=== PATIENT | male | born 1950 | race Caucasian/White ===

== ENCOUNTER → 2016-07-06 | Outpatient (CLI) | payer OTHER ==
[~2016-07-06] MED LIST: ESCI10TA53 PO; OMEP20CA5 PO; ZOLP-158 PO; [UNRECOGNIZED DRUG - CODE] PO
== END | disposition home or self-care (01) ==
LOC: LAB 08:24
DX: N52.9 Male erectile dysfunction, unspecified (principal)
CPT/HCPCS: 36415; 84403

== ENCOUNTER → 2016-10-12 | Outpatient (CLI) | payer OTHER ==
[~2016-10-12] MED LIST changes: -OMEP20CA5 PO; +OMEP20CA74 PO
[2016-10-12 08:37] LABS: Basophils # (auto) 0 uL; Basophils % (auto) 0.5 % (0.0-2.0); CONDITION Y; Eosinophils # (auto) 0.1 uL; Eosinophils % (auto) 0.8 % (0.0-7.0); Hematocrit 47.3 % (41.0-53.0); Lymphocytes # (auto) 2.1 uL; Lymphocytes % (auto) 32.8 % (10.0-50.0); Mean Corpuscular Hgb Conc. 33.9 g/dL (32.0-36.0); Mean Corpuscular Volume 88.7 fL (80.0-100.0); Mean Platelet Volume 9.1 fL (7.4-10.4); Monocytes # (auto) 0.5 uL; Monocytes % (auto) 8.4 % (0.0-12.0); Neutrophils # (auto) 3.7 uL; Neutrophils % (auto) 57.5 % (37.0-80.0); Platelet Count (auto) 212 10^3/uL (140-450); Red Cell Distribution Width 15.9 % (11.6-16.0); White Blood Cell 6.4 10^3/uL (4.4-10.8)
[2016-10-12 08:40] LABS: Urine Bilirubin Negative (Negative); Urine Blood Negative /uL (Negative); Urine Color Yellow (Yellow); Urine Glucose Normal (Normal); Urine Ketone Negative (Negative); Urine Nitrite Negative (Negative); Urine RBC <1 /hpf (0 - 3); Urine Urobilinogen Normal (Negative)
[2016-10-12 09:09] LABS: Albumin 3.5 g/dL (3.4-5.0); BUN/Creatinine Ratio 13.5; Bilirubin, Total 0.7 mg/dL (0.2-1.0); Calcium 8.3 mg/dL (8.5-10.1); Potassium 4.1 mmol/L (3.5-5.1); Total Protein 7.3 g/dL (6.4-8.2); Uric Acid 7.3 mg/dL (3.5-7.2)
== END | disposition home or self-care (01) ==
LOC: LAB 07:50
PROVIDERS: ATTEND Family Medicine
DX: E79.0 Hyperuricemia without signs of inflammatory arthritis and tophaceous disease (principal); E78.5 Hyperlipidemia, unspecified; Z12.5 Encounter for screening for malignant neoplasm of prostate; Z12.11 Encounter for screening for malignant neoplasm of colon
CPT/HCPCS: 36415; 80053; 80061; 81001; 82270; 83036; 84153; 84443; 84550; 85025

== ENCOUNTER → 2017-05-21 | Outpatient (CLI) | payer OTHER ==
[2017-05-21 09:25] LABS: Basophils # (auto) 0 uL; Basophils % (auto) 0.6 % (0.0-2.0); Eosinophils # (auto) 0.1 uL; Eosinophils % (auto) 1.6 % (0.0-7.0); Hematocrit 49.9 % (41.0-53.0); Hemoglobin 16.8 g/dL (13.5-17.5); Lymphocytes # (auto) 2.4 uL; Lymphocytes % (auto) 36.9 % (10.0-50.0); Mean Corpuscular Hemoglobin 30.6 pg (28.0-32.0); Mean Corpuscular Hgb Conc. 33.7 g/dL (32.0-36.0); Mean Corpuscular Volume 90.7 fL (80.0-100.0); Monocytes # (auto) 0.5 uL; Monocytes % (auto) 7.4 % (0.0-12.0); Neutrophils # (auto) 3.5 uL; Neutrophils % (auto) 53.5 % (37.0-80.0); Nucleated Red Blood Cells % 0.1 %; Platelet Count (auto) 153 10^3/uL (140-450); Red Cell Distribution Width 14.6 % (11.8-14.3); White Blood Cell 6.5 10^3/uL (4.4-10.8)
[2017-05-21 09:33] LABS: Urine Bacteria NONE SEEN /hpf (None Seen); Urine Blood Negative /uL (Negative); Urine Specific Gravity 1.019 (1.001-1.035); Urine WBC <1 /hpf (0 - 3)
[2017-05-21 10:09] LABS: Albumin 3.7 g/dL (3.4-5.0); BUN/Creatinine Ratio 24.4; Bilirubin, Total 0.8 mg/dL (0.2-1.0); Calcium 8.5 mg/dL (8.5-10.1); Total Protein 7.5 g/dL (6.4-8.2)
== END | disposition home or self-care (01) ==
LOC: LAB 09:03
PROVIDERS: ATTEND Nurse Practitioner
DX: E78.5 Hyperlipidemia, unspecified (principal); R79.89 Other specified abnormal findings of blood chemistry
CPT/HCPCS: 36415; 80053; 80061; 81001; 83036; 84153; 84403; 84443; 85025

== ENCOUNTER → 2017-10-28 | Outpatient (CLI) | payer OTHER ==
[2017-10-28 08:33] LABS: Basophils # (auto) 0 uL; Basophils % (auto) 0.7 % (0.0-2.0); Eosinophils # (auto) 0.1 uL; Eosinophils % (auto) 1.3 % (0.0-7.0); Hematocrit 48.4 % (41.0-53.0); Hemoglobin 16.6 g/dL (13.5-17.5); Lymphocytes % (auto) 30.8 % (10.0-50.0); Mean Corpuscular Hemoglobin 30.9 pg (28.0-32.0); Mean Corpuscular Hgb Conc. 34.2 g/dL (32.0-36.0); Mean Corpuscular Volume 90.4 fL (80.0-100.0); Monocytes # (auto) 0.5 uL; Monocytes % (auto) 8.6 % (0.0-12.0); Neutrophils # (auto) 3.8 uL; Neutrophils % (auto) 58.6 % (37.0-80.0); Nucleated Red Blood Cells % 0.1 %; Platelet Count (auto) 181 10^3/uL (140-450); Red Blood Cells 5.35 10^6/uL (4.5-5.90); Red Cell Distribution Width 14.3 % (11.8-14.3); White Blood Cell 6.4 10^3/uL (4.4-10.8)
[2017-10-28 09:35] LABS: Albumin 3.3 g/dL (3.4-5.0); BUN/Creatinine Ratio 15.6; Calcium 8.2 mg/dL (8.5-10.1); Potassium 4.1 mmol/L (3.5-5.1)
[2017-10-28 09:38] LABS: Bilirubin, Total 0.8 mg/dL (0.2-1.0); Total Protein 7.2 g/dL (6.4-8.2)
== END | disposition home or self-care (01) ==
LOC: LAB 08:12
PROVIDERS: ATTEND Nurse Practitioner
DX: E78.5 Hyperlipidemia, unspecified (principal)
CPT/HCPCS: 36415; 80053; 80061; 83036; 84403; 85025

== ENCOUNTER → 2018-02-16 | Day surgery (SDC) | payer OTHER ==
[2018-02-15 12:21] LABS: Urine WBC None Seen /hpf (0 - 3)
[2018-02-15 12:31] LABS: Basophils # (auto) 0 uL; Basophils % (auto) 0.4 % (0.0-2.0); Eosinophils # (auto) 0.1 uL; Eosinophils % (auto) 1.4 % (0.0-7.0); Hematocrit 49.2 % (41.0-53.0); Hemoglobin 16.6 g/dL (13.5-17.5); Lymphocytes # (auto) 2.5 uL; Lymphocytes % (auto) 36.5 % (10.0-50.0); Mean Corpuscular Hemoglobin 30.7 pg (28.0-32.0); Mean Corpuscular Hgb Conc. 33.7 g/dL (32.0-36.0); Monocytes # (auto) 0.6 uL; Monocytes % (auto) 8.7 % (0.0-12.0); Neutrophils # (auto) 3.6 uL; Platelet Count (auto) 159 10^3/uL (140-450); Red Cell Distribution Width 14.6 % (11.8-14.3); White Blood Cell 6.8 10^3/uL (4.4-10.8)
[2018-02-15 12:37] LABS: Urine Bacteria NONE SEEN /hpf (None Seen); Urine Blood Negative /uL (Negative); Urine Specific Gravity 1.018 (1.001-1.035)
[2018-02-15 12:45] LABS: Partial Thromboplastin Time 29.4 sec (23.78-33.04); Prothrombin Time 10.7 sec (9.27-12.13)
[2018-02-15 12:49] LABS: Albumin 3.3 g/dL (3.4-5.0); BUN/Creatinine Ratio 19.4; Calcium 8.2 mg/dL (8.5-10.1); Potassium 4.1 mmol/L (3.5-5.1)
[2018-02-15 13:07] LABS: Bilirubin, Total 0.4 mg/dL (0.2-1.0); Total Protein 7.2 g/dL (6.4-8.2)
[~2018-02-16] VITALS: Ht 180.3 cm; Wt 98.9 kg
[~2018-02-16] MED LIST changes: -ESCI10TA53 PO; +GLYCOPYRROLATE 0.2 MG/ML 1ML VIAL ONE; +HYDROmorphone HCL 2 MG/ML VL IV PRN; +KETOROLAC TROMETH 30 MG/ML 1ML VIAL ONE; +LEVOFLOXACIN 500MG 100 ML IV ONE; +LIDOCAINE 1% INJ PF 5ML AMP ONE; +METOCLOPRAMIDE HCL 5MG/ml INJ 2ml VIAL ONE; +MIDAZOLAM HCL 1MG/1ML-2 ML VIAL ONE; +NALOXONE HCL 0.4 MG/ML VIAL IV PRN; +NEOSTIGMINE 1 MG/ML INJ (10mg/10ML VIAL) ONE; +ONDANSETRON HCL 4 MG/2 ML VIAL IV ONE; +ROCURONIUM 10MG/ML 10ML VIAL IV ONE; +SUCCINYLCHOLINE CHLORIDE 20 MG/ML 10ML VIAL IV ONE; -ZOLP-158 PO; -[UNRECOGNIZED DRUG - CODE] PO; +fentaNYL CITRATE 100 MCG/2 ML VL ONE
[2018-02-16 13:15] VITALS: BP 138/80
== END | disposition home or self-care (01) ==
LOC: SUR 08:01
PROVIDERS: ATTEND Surgery
DX: K62.0 Anal polyp (principal); K62.89 Other specified diseases of anus and rectum; M19.90 Unspecified osteoarthritis, unspecified site; G47.33 Obstructive sleep apnea (adult) (pediatric); I10 Essential (primary) hypertension; K21.9 Gastro-esophageal reflux disease without esophagitis; Z98.890 Other specified postprocedural states; Z79.899 Other long term (current) drug therapy
CPT/HCPCS: 36415; 46922; 80053; 81001; 85025; 85610; 85730; 88304; J0330; J1885; J1956; J2250; J2405; J2765; J3010

== ENCOUNTER → 2018-05-18 | Outpatient (CLI) | payer OTHER ==
[~2018-05-18] MED LIST changes: -GLYCOPYRROLATE 0.2 MG/ML 1ML VIAL ONE; -HYDROmorphone HCL 2 MG/ML VL IV PRN; -KETOROLAC TROMETH 30 MG/ML 1ML VIAL ONE; -LEVOFLOXACIN 500MG 100 ML IV ONE; -LIDOCAINE 1% INJ PF 5ML AMP ONE; -METOCLOPRAMIDE HCL 5MG/ml INJ 2ml VIAL ONE; -MIDAZOLAM HCL 1MG/1ML-2 ML VIAL ONE; -NALOXONE HCL 0.4 MG/ML VIAL IV PRN; -NEOSTIGMINE 1 MG/ML INJ (10mg/10ML VIAL) ONE; -ONDANSETRON HCL 4 MG/2 ML VIAL IV ONE; -ROCURONIUM 10MG/ML 10ML VIAL IV ONE; -SUCCINYLCHOLINE CHLORIDE 20 MG/ML 10ML VIAL IV ONE; -fentaNYL CITRATE 100 MCG/2 ML VL ONE
[2018-05-18 08:16] LABS: Basophils # (auto) 0.1 uL; Eosinophils # (auto) 0.1 uL; Eosinophils % (auto) 2.6 % (0.0-7.0); Hematocrit 47.4 % (41.0-53.0); Hemoglobin 16.3 g/dL (13.5-17.5); Lymphocytes % (auto) 35.9 % (10.0-50.0); Mean Corpuscular Hgb Conc. 34.3 g/dL (32.0-36.0); Mean Corpuscular Volume 90.4 fL (80.0-100.0); Monocytes # (auto) 0.5 uL; Monocytes % (auto) 8.7 % (0.0-12.0); Neutrophils # (auto) 2.9 uL; Neutrophils % (auto) 51.8 % (37.0-80.0); Nucleated Red Blood Cells % 0.1 %; Platelet Count (auto) 148 10^3/uL (140-450); Red Blood Cells 5.24 10^6/uL (4.5-5.90); Red Cell Distribution Width 14.2 % (11.8-14.3); White Blood Cell 5.7 10^3/uL (4.4-10.8)
[2018-05-18 09:28] LABS: Albumin 3.4 g/dL (3.4-5.0); BUN/Creatinine Ratio 13.7; Calcium 8.7 mg/dL (8.5-10.1); Potassium 4.3 mmol/L (3.5-5.1)
[2018-05-18 09:32] LABS: Bilirubin, Total 0.8 mg/dL (0.2-1.0); Total Protein 7.3 g/dL (6.4-8.2)
[2018-05-18 09:53] LABS: Free T4 (Free Thyroxine) 0.85 ng/dL (0.89-1.76)
[2018-05-18 09:54] LABS: Folate (Folic Acid) 12.4 ng/mL (5.38-24)
== END | disposition home or self-care (01) ==
LOC: LAB 08:02
PROVIDERS: ATTEND Internal Medicine
DX: E78.5 Hyperlipidemia, unspecified (principal)
CPT/HCPCS: 36415; 80053; 80061; 82607; 82746; 83036; 84403; 84439; 84443; 85025

== ENCOUNTER 2024-07-19 13:46 | Emergency (ER) | payer OTHER ==
[~2024-07-19] VITALS: Ht 180.3 cm; Wt 94.9 kg
[2024-07-19 14:16] VITALS: BP 144/75; PULSE 77; RESP 16; TEMP 98.7; O2SAT 96
--- NOTE | 2024-07-19 14:16 | ED.PDOC ---
GI ASSESSMENT HPI Comments 73 y/o M, with PMHx of gallstones presents to the ED for CC of abdominal pain. Patient states, he has been experiencing epigastric abdominal pain onset, last night (07/18/24). Patient reports, that he had an EGD procedure done yesterday morning (07/18/24) for prior Dx:Chololithiasis q2xbwan ago. Patient endorses, taking [id number] for pain with no relief of symptoms. Patient denies melena, blood streaked bowels, hematemesis, nausea, or vomiting. No other symptoms or modifying factors present at this time. Time Seen by MD: 14:00 Reviewed Notes: Nurses Notes, Medications, Allergies Allergies: Coded Allergies: NO KNOWN ALLERGIES (Unverified , 02/15/18) Home Meds Reported Medications Omeprazole (PRILOSEC) 20 Mg Cap, 1 CAP PO DAILY, #90 CAP 1 Refill 02/05/15 Information Source: Patient Mode of Arrival: Ambulatory Timing: Hours Duration: Since onset Prehospital treatment: None Quality: None Vomitus: None Stool: Normal Severity: Moderate Recent: None Recent Hx of: None Pain Location: Epigastric Modifying Factors: Nothing Associated sign and symptoms: Abdominal Pain Past Medical History PAST MEDICAL HISTORY: Denies Surgical History: Denies all surgeries Family History Family History: Unknown Social History Smoker: Non-Smoker Alcohol: Denies ETOH Use Drugs: Denies Drug Use Lives In: Home Constitutional: denies: chills, diaphoresis, fatigue, fever, malaise, sweats, weakness, others EENTM: denies: blurred vision, double vision, ear bleeding, ear discharge, ear drainage, ear pain, ear ringing, eye pain, eye redness, hearing loss, mouth pain, mouth swelling, nasal discharge, nose bleeding, nose congestion, nose pa in, photophobia, tearing, throat pain, throat swelling, voice changes, others Respiratory: denies: cough, hemoptysis, orthopnea, SOB at rest, shortness of breath, SOB with excertion, stridor, wheezing, others Cardiovascular: denies: chest pain, dizzy spells, diaphoresis, Dyspnea on exertion, edema, irregular heart beat, left arm pain, lightheadedness, palpitations, PND, syncope, others Gastrointestinal: reports: abdominal pain; denies: abdomen distended, blood streaked bowels, constipated, diarrhea, dysphagia, difficulty swallowing, hematemesis, melena, nausea, poor appetite, poor fluid intake, rectal bleeding, rectal pain, vomiting, others Genitourinary: denies: burning, dysuria, flank pain, frequency, hematuria, incontinence, penile discharge, penile sore, pain, testicle pain, testicle swelling, urgency, others Neurological: denies: dizziness, fainting, headache, left sided numbness, left sided weakness, numbness, paresthesia, pre-existing deficit, right sided numbness, right sided weakness, seizure, speech problems, tingling, tremors, weakness, others Musculoskeletal: reports: back pain; denies: gout, joint pain, joint swelling, muscle pain, muscle stiffness, neck pain, others Integumetry: denies: bruises, change in color, change in hair/nails, dryness, laceration, lesions, lumps, rash, wounds, others Allergic/Immunocompromised: denies: Difficulty Healing, Frequent Infections, Hives, Itching, others Hematologic/Lymphatic: denies: anemia, blood clots, easy bleeding, easy bruising, swollen glands, others Endocrine: denies: excessive hunger, excessive sweating, excessive thirst, excessive urination, flushing, intolerance to cold, intolerance to heat, unexplained weight gain, unexplained weight loss, others Psychiatric: denies: anxiety, bipolar disorder, depression, hopeless, panic disorder, schizophrenia, sleepless, suicidal, others All Other Systems: Reviewed and Negative Physical Exam General Appearance: Moderate Distress HEENT: Normal ENT Inspection, Pharynx Normal, TMs Normal Neck: Full Range of Motion, Non-Tender, Normal, Normal Inspection Respiratory: Chest Non-Tender, Lungs Clear, No Accessory Muscle Use, No R espiratory Distress, Normal Breath Sounds Cardiovascular: No Edema, No JVD, No Murmur, No Gallop, Normal Peripheral Pulses, Regular Rate/Rhythm Breast Exam: Deferred Gastrointestinal: Epigastric, No Organomegaly, No Pulsatile Mass, Normal Bowel Sounds, Soft, Tenderness Genitalia: Deferred Pelvic: Deferred Rectal: Deferred Extremities: No calf tenderness, Normal capillary refill, Normal inspection, Normal range of motion, Non-tender, No pedal edema Musculoskeletal : Apperance: Normal Neurologic: Alert, smoking pipe liner II-XII nml as Tested, No Motor Deficits, Normal Affect, Normal Mood, No Sensory Deficits Cerebellar Function: Normal Reflexes: Normal Skin: Dry, Normal Color, Warm Lymphatic: No Adenopathy Was a procedure done? Was a procedure done?: No GI differential Dx Differential Diagnosis: Cholangitis, Cholecystitis, Gastritis/PUD, Gastroenteritis X-Ray, Labs, Meds, VS Vital Signs Date Time Temp Pulse Resp B/P (MAP) Pulse Ox O2 Delivery O2 Flow Rate FiO2 07/19/24 14:16 98.7 77 16 144/75 (98) 96 98.7 Lab Test 07/19/24 14:36 07/19/24 12:30 Range/Units White Blood Count 8.7 4.4-10.8 10^3/uL Red Blood Count 5.25 4.5-5.90 10^6/uL Hemoglobin 16.5 13.5-17.5 g/dL Hematocrit 47.6 41.0-53.0 % Mean Corpuscular Volume 90.5 80.0-100.0 fL Mean Corpuscular Hemoglobin 31.4 28.0-32.0 pg Mean Corpuscular Hemoglobin Concent 34.7 32.0-36.0 g/dL Red Cell Distribution Width 14.9 H 11.8-14.3 % Platelet Count 172 140-450 10^3/uL Mean Platelet Volume 8.1 6.9-10.8 fL Neutrophils (%) (Auto) 74.9 37.0-80.0 % Lymphocytes (%) (Auto) 19.6 10.0-50.0 % Monocytes (%) (Auto) 5.1 0.0-12.0 % Eosinophils (%) (Auto) 0.0 0.0-7.0 % Basophils (%) (Auto) 0.4 0.0-2.0 % Neutrophils # (Auto) 6.5 1.6-8.6 10 ^3/uL Lymphocytes # (Auto) 1.7 0.4-5.4 10 ^3/uL Monocytes # (Auto) 0.4 0-1.3 10 ^3/uL Eosinophils # (Auto) 0 0-0.8 10 ^3/uL Basophils # (Auto) 0 0-0.2 10 ^3/uL Nucleated Red Blood Cells 0.3 % Sodium Level 141 136-145 mmol/L Potassium Level 4.1 3.5-5.1 mmol/L Chloride Level 104 98-107 mmol/L Carbon Dioxide Level 30 20-31 mmol/L Anion Gap 7 5-15 Blood Urea Nitrogen 13 9-23 mg/dL Creatinine 0.90 0.700-1.30 mg/dL Glomerular Filtration Rate Calc 90 >90 mL/min BUN/Creatinine Ratio 14.4 10.0-20.0 Serum Glucose 96 74-106 mg/dL Calcium Level 8.8 8.7-10.4 mg/dL Total Bilirubin 1.5 H 0.2-1.0 mg/dL Aspartate Amino Transferase (AST) 89 H 13-40 U/L Alanine Aminotransferase (ALT) 56 H 7-40 U/L Alkaline Phosphatase 100 46-116 U/L Total Protein 6.6 5.7-8.2 g/dL Albumin 4.1 3.2-4.8 g/dL Lipase 51 12-53 U/L Urine Color Light-yellow Yellow Urine Clarity Clear Clear Urine pH 7.5 5.0-9.0 Urine Specific [place] 1.009 1.001-1.035 Urine Protein Negative Negative Urine Ketones Negative Negative Urine Blood Negative Negative /uL Urine Nitrite Negative Negative Urine Bilirubin Negative Negative Urine Urobilinogen Normal Negative mg/dL Urine Leukocyte Esterase Negative Negative /uL Urine RBC 1 0 - 3 /hpf Urine Microscopic WBC < 1 0-3 /HPF Urine Squamous Epithelial Cells None seen <5 /hpf Urine Bacteria None seen None Seen /hpf Urine Glucose Normal Normal mg/dL GALLBLADDER US: IMPRESSION: 1. Sludge and stones in the gallbladder with no gallbladder wall thickening. Mildly dilated common bile duct. Negative sonographic Rothman's sign 2. 8.5 by 6.2 cm hepatic cyst At this time an IV Hep-Lock has been established The patient was given morphine 4 mg IV push for the pain The patient was given Zofran IV push for the nausea The patient is being given Protonix 40 mg IV push The patient's CBC is within normal limits The chemistry panel is within normal limits The patient is being admitted to the hospitalist At this time, the patient understands and agrees with the management. Images Reviewed?: Images reviewed and evaluated by me Time of 1ST Reevaluation: 14:30 Reevaluation 1ST: Unchanged Patient Education/Counseling: Diagnosis, Treatment, Prognosis Family Education/Counseling: No Family Present Departure 1 Departure Time of Disposition: 15:40 Impression: Primary Impression: Intractable abdominal pain Additional Impression: Cholelithiasis Qualified Codes: K80.20 - Calculus of gallbladder without cholecystitis without obstruction Disposition: 09 ADMITTED INPATIENT Admit to: Med Surg Condition: Fair Critical Care Note Critical Care Time?: No Stability Stability form required: Yes Unstable for transfer: ED Physician Assesment (Clinical assesment) Heart Score Heart Score: Heart Score Response (Comments) Value History N/A 0 EKG N/A 0 Age N/A 0 Risk Factors N/A 0 Troponin N/A 0 Total 0 I personally scribed for KENAN CARLOS MD ([email or web address]) on 07/19/24 at 14:16. Electronically submitted by Maryellen Rosales ([email or web address]). I personally scribed for KENAN CARLOS MD ([email or web address]) on 07/19/24 at 15:16. Electronically submitted by Maryellen Rosales ([email or web address]). I personally scribed for KENAN CARLOS MD ([email or web address]) on 07/19/24 at 15:31. Electronically submitted by Maryellen Rosales ([email or web address]). KENAN CARLOS MD July 19, 2024 14:16
[2024-07-19 14:44] LABS: Urine Bacteria None Seen /hpf (None Seen)
[2024-07-19 14:44] LABS: Basophils # (auto) 0 10 ^3/uL (0-0.2); Basophils % (auto) 0.4 % (0.0-2.0); Eosinophils # (auto) 0 10 ^3/uL (0-0.8); Hematocrit 47.6 % (41.0-53.0); Hemoglobin 16.5 g/dL (13.5-17.5); Lymphocytes # (auto) 1.7 10 ^3/uL (0.4-5.4); Lymphocytes % (auto) 19.6 % (10.0-50.0); Mean Corpuscular Hemoglobin 31.4 pg (28.0-32.0); Mean Corpuscular Hgb Conc. 34.7 g/dL (32.0-36.0); Mean Corpuscular Volume 90.5 fL (80.0-100.0); Monocytes # (auto) 0.4 10 ^3/uL (0-1.3); Monocytes % (auto) 5.1 % (0.0-12.0); Neutrophils # (auto) 6.5 10 ^3/uL (1.6-8.6); Neutrophils % (auto) 74.9 % (37.0-80.0); Nucleated Red Blood Cells % 0.3 %; Platelet Count (auto) 172 10^3/uL (140-450); Red Blood Cells 5.25 10^6/uL (4.5-5.90); Red Cell Distribution Width 14.9 % (11.8-14.3); White Blood Cell 8.7 10^3/uL (4.4-10.8)
[2024-07-19 14:56] LABS: Urine Blood Negative /uL (Negative); Urine Clarity Clear (Clear); Urine Color Light-Yellow (Yellow); Urine Protein, UAD Negative (Negative); Urine Specific Gravity 1.009 (1.001-1.035); Urine Squamous Epithelial Cell None Seen /hpf (<5); Urine Urobilinogen Normal (Negative); Urine WBC < 1 /HPF (0-3); Urine pH 7.5 (5.0-9.0)
[2024-07-19 15:08] LABS: Albumin 4.1 g/dL (3.2-4.8); Alkaline Phosphatase 100 U/L (46-116); Anion Gap 7 (5-15); BUN/Creatinine Ratio 14.4 (10.0-20.0); Blood Urea Nitrogen 13 mg/dL (9-23); Calcium 8.8 mg/dL (8.7-10.4); Carbon Dioxide 30 mmol/L (20-31); Chloride 104 mmol/L (98-107); Glucose 96 mg/dL (74-106); Lipase 51 U/L (12-53); Potassium 4.1 mmol/L (3.5-5.1); Sodium 141 mmol/L (136-145); Total Protein 6.6 g/dL (5.7-8.2)
[2024-07-19 15:09] LABS: Alanine Aminotransferase 56 U/L (7-40); Aspartate Aminotransferase 89 U/L (13-40); Bilirubin, Total 1.5 mg/dL (0.2-1.0)
--- NOTE | 2024-07-19 15:10 | DVH ---
INDICATION: pain TECHNIQUE: Ultrasound gallbladder . Multiple real-time sonographic images of the abdomen were obtai isela. COMPARISON: None FINDINGS: The liver is homogenous in echogenicity. The liver measures 16.12 cm. No intrahepatic bili kang ductal dilatation is noted. 8.5 x 6.2 x 5.3 cm anechoic lesion right lobe of the liver suggesting hepatic cyst. The gallbladder wall measures 0.23 cm and is unremarkable. Stones sludge are noted in the gallbladd er. The common duct measures 0.76 cm and is dilated. No pericholecystic fluid is noted. Negative so nographic Rothman's sign The right kidney measures 10.3 cm. No hydronephrosis. The pancreas is not well visualized due to obscuration from bowel gas. The visualized portions of the IVC and aorta are grossly unremarkable. IMPRESSION: 1. Sludge and stones in the gallbladder with no gallbladder wall thickening. Mildly dilated common bi le duct. Negative sonographic Rothman's sign 2. 8.5 by 6.2 cm hepatic cyst
[2024-07-19] MEDS ORDERED: ONDANSETRON HCL 4 MG/2 ML VIAL IV ONE (15:15)
[2024-07-19] MEDS ORDERED: MORPHINE SULFATE 4 MG/ML SYR/VIAL IV ONE (15:15)
[2024-07-19] MEDS ORDERED: PANTOPRAZOLE 40 MG/10 ML VIAL INJ IV ONE (15:15)
[2024-07-19] MEDS ORDERED: PANT40TA2 PO (16:28)
== END 2024-07-19 20:37 | disposition home or self-care (01) ==
LOC: ER 13:48
DX: R10.13 Epigastric pain (principal); K80.20 Calculus of gallbladder without cholecystitis without obstruction; Z79.899 Other long term (current) drug therapy
CPT/HCPCS: 36415; 76705; 80053; 81001; 83690; 85025

== ENCOUNTER 2025-03-03 23:42 | Inpatient (IN) | payer OTHER ==
[~2025-03-03] VITALS: Ht 180.3 cm; Wt 96.1 kg
[~2025-03-03 23:42] MED LIST changes: +PANT40TA2 PO
[2025-03-04] MEDS: HYDROmorphone HCL 2 MG/ML VL/or syr IV ONE (00:30)
--- NOTE | 2025-03-04 00:41 | ED.PDOC ---
GI ASSESSMENT HPI Comments 74-year-old male who came to ER for abdominal pain. Recently diagnosed with gallstones, in the past few days patient has been experiencing epigastric/right upper quadrant abdominal pain, associated bouts of nausea and vomiting. Chief Complaint: Abdominal Pain Time Seen by MD: 00:40 Primary Care Provider: RODGER Chau Notes: Nurses Notes Allergies: Coded Allergies: NO KNOWN ALLERGIES (Unverified , 02/15/18) Home Meds Active Scripts Pantoprazole Sodium Sesquihydr (Protonix) 40 Mg Tab, 40 MG PO DAILY, #30 TAB Prov:KENAN CARLOS MD 07/19/24 Reported Medications Omeprazole (PRILOSEC) 20 Mg Cap, 1 CAP PO DAILY, #90 CAP 1 Refill 02/05/15 Information Source: Patient Mode of Arrival: Ambulatory Past Medical History PAST MEDICAL HISTORY: Gallstones Surgical History: Denies all surgeries Family History Family History: Unknown Social History Smoker: Non-Smoker Alcohol: Denies ETOH Use Drugs: Denies Drug Use Lives In: Home Constitutional: denies: chills, diaphoresis, fatigue, fever, malaise, sweats, weakness, others EENTM: denies: blurred vision, double vision, ear bleeding, ear discharge, ear drainage, ear pain, ear ringing, eye pain, eye redness, hearing loss, mouth pain, mouth swelling, nasal discharge, nose bleeding, nose congestion, nose pain, photophobia, tearing, throat pain, throat swelling, voice changes, others Respiratory: denies: cough, hemoptysis, orthopnea, SOB at rest, shortness of breath, SOB with excertion, stridor, wheezing, others Cardiovascular: denies: chest pain, dizzy spells, diaphoresis, Dyspnea on exertion, edema, irregular heart beat, left arm pain, lightheadedness, palpitations, PND, syncope, others Gastrointestinal: reports: abdominal pain, nausea, vomiting; denies: abdomen distended, blood streaked bowels, constipated, diarrhea, dysphagia, difficulty swallowing, hematemesis, melena, poor appetite, poor fluid intake, rectal bleeding, rectal pain, others Genitourinary: denies: burning, dysuria, flank pain, frequency, hematuria, incontinence, penile discharge, penile sore, pain, testicle pain, testicle swelling, urgency, others Neurological: denies: dizziness, fainting, headache, left sided numbness, left sided weakness, numbness, paresthesia, pre-existing deficit, right sided numbness, right sided weakness, seizure, speech problems, tingling, tremors, weakness, others Musculoskeletal: denies: back pain, gout, joint pain, joint swelling, muscle pain, muscle stiffness, neck pain, others Integumetry: denies: bruises, change in color, change in hair/nails, dryness, laceration, lesions, lumps, rash, wounds, others Allergic/Immunocompromised: denies: Difficulty Healing, Frequent Infections, Hives, Itching, others Hematologic/Lymphatic: denies: anemia, blood clots, easy bleeding, easy bruising, swollen glands, others Endocrine: denies: excessive hunger, excessive sweating, excessive thirst, excessive urination, flushing, intolerance to cold, intolerance to heat, u nexplained weight gain, unexplained weight loss, others Psychiatric: denies: anxiety, bipolar disorder, depression, hopeless, panic disorder, schizophrenia, sleepless, suicidal, others Physical Exam General Appearance: No Apparent Distress, Normal HEENT: Normal ENT Inspection, Pharynx Normal, TMs Normal Neck: Full Range of Motion, Non-Tender, Normal, Normal Inspection Respiratory: Chest Non-Tender, Lungs Clear, No Accessory Muscle Use, No Respiratory Distress, Normal Breath Sounds Cardiovascular: No Edema, No JVD, No Murmur, No Gallop, Normal Peripheral Pulses, Regular Rate/Rhythm Breast Exam: Deferred Gastrointestinal: No Organomegaly, Non Tender, No Pulsatile Mass, Normal Bowel Sounds, Soft Genitalia: Deferred Pelvic: Deferred Rectal: Deferred Extremities: No calf tenderness, Normal capillary refill, Normal inspection, Normal range of motion, Non-tender, No pedal edema Musculoskeletal : Apperance: Normal Neurologic: Alert, geosciences faculty member II-XII nml as Tested, No Motor Deficits, Normal Affect, Normal Mood, No Sensory Deficits Cerebellar Function: Normal Reflexes: Normal Skin: Dry, Normal Color, Warm Lymphatic: No Adenopathy Was a procedure done? Was a procedure done?: No GI differential Dx Differential Diagnosis: Cholangitis, Cholecystitis, Diverticular disease, Gastritis/PUD, Gastroenteritis, Pancreatitis X-Ray, Labs, Meds, VS Vital Signs Date Time Temp Pulse Resp B/P (MAP) Pulse Ox O2 Delivery O2 Flow Rate FiO2 03/04/25 02:57 98.1 58 20 143/79 (100) 96 98.1 03/04/25 02:57 60 20 97 Room Air 03/03/25 23:46 97.6 60 16 151/98 100 97.6 Lab Test 03/04/25 00:30 Range/Units White Blood Count 7.7 4.4-10.8 10^3/uL Red Blood Count 4.96 4.5-5.90 10^6/uL Hemoglobin 15.4 13.5-17.5 g/dL Hematocrit 44.6 41.0-53.0 % Mean Corpuscular Volume 89.9 80.0-100.0 fL Mean Corpuscular Hemoglobin 31.0 28.0-32.0 pg Mean Corpuscular Hemoglobin Concent 34.6 32.0-36.0 g/dL Red Cell Distribution Width 15.3 H 11.8-14.3 % Platelet Count 132 L 140-450 10^3/uL Mean Platelet Volume 8.6 6.9-10.8 fL Neutrophils (%) (Auto) 70.3 37.0-80.0 % Lymphocytes (%) (Auto) 22.9 10.0-50.0 % Monocytes (%) (Auto) 6.4 0.0-12.0 % Eosinophils (%) (Auto) 0.0 0.0-7.0 % Basophils (%) (Auto) 0.4 0.0-2.0 % Neutrophils # (Auto) 5.4 1.6-8.6 10 ^3/uL Lymphocytes # (Auto) 1.8 0.4-5.4 10 ^3/uL Monocytes # (Auto) 0.5 0-1.3 10 ^3/uL Eosinophils # (Auto) 0 0-0.8 10 ^3/uL Basophils # (Auto) 0 0-0.2 10 ^3/uL Nucleated Red Blood Cells 0.1 % Prothrombin Time 10.8 9.3-11.8 sec Prothrombin Time INR 1.02 0.9-1.15 Activated Partial Thromboplast Time 27.6 24.5-34.5 SEC Sodium Level 138 136-145 mmol/L Potassium Level 4.7 3.5-5.1 mmol/L Chloride Level 104 98-107 mmol/L Carbon Dioxide Level 27 20-31 mmol/L Anion Gap 7 5-15 Blood Urea Nitrogen 11 9-23 mg/dL Creatinine 0.85 0.700-1.30 mg/dL Glomerular Filtration Rate Calc 91 >90 mL/min BUN/Creatinine Ratio 12.9 10.0-20.0 Serum Glucose 123 H 74-106 mg/dL Calcium Level 9.1 8.7-10.4 mg/dL Total Bilirubin 2.7 H 0.2-1.0 mg/dL Aspartate Amino Transferase (AST) 610 H 13-40 U/L Alanine Aminotransferase (ALT) 504 H 7-40 U/L Alkaline Phosphatase 130 H 46-116 U/L Total Protein 6.9 5.7-8.2 g/dL Albumin 4.0 3.2-4.8 g/dL Lipase 50 12-53 U/L Time of 1ST Reevaluation: 00:38 Reevaluation 1ST: Unchanged Patient Education/Counseling: Diagnosis, Treatment Family Education/Counseling: No Family Present SEPSIS Sepsis Screen Date sepsis recognized/suspect: Mar 03, 2025 Time Sepsis recognized/suspect: 2347 Recent Procedure: No On Antibiotic Therapy: No Respiratory Rate >20: No Heart Rate >90: No Temp<36 C (96.8 F) or >38.3 C: No SBP <90 or MAP <65 mmHG: No New Acute Mental Status Change: No Is the patient on CPAP, BIPAP,: No Physician Orders Urinalysis (03/04/25 00:23) Gallbladder (03/04/25 00:23) NS (03/04/25 03:15) Ceftriaxone Ivpb Rocephin (03/04/25 03:15) Metronidazole Ivpb Flagyl (03/04/25 03:15) Vital Signs Date Time Temp Pulse Resp B/P (MAP) Pulse Ox O2 Delivery O2 Flow Rate FiO2 03/04/25 02:57 98.1 58 20 143/79 (100) 96 98.1 03/04/25 02:57 60 20 97 Room Air 03/03/25 23:46 97.6 60 16 151/98 100 97.6 Laboratory Tests Test 03/04/25 00:30 White Blood Count 7.7 10^3/uL (4.4-10.8) Departure 1 Departure Time of Disposition: 03:11 Impression: Primary Impression: Cholelithiasis Additional Impressions: Intractable abdominal pain Cholecystitis Disposition: ADMITTED INPATIENT Admit to: Med Surg Condition: Guarded Comments 74-year-old male with known history of gallstones now with right upper quadrant pain and nausea and vomiting. He is pretty tender there. Ultrasound confirms gallstone. LFTs are elevated. Patient was given IV fluids and pain medication and IV antibiotics. Patient will need to be admitted for supportive care and further workup. Critical Care Note Critical Care Time?: Yes (35 min-critical care time only) Critical care comment: Total critical care time: Approximately 36 minutes Due to a high probability of clinically significant, life threatening deterioration, the patient required my highest level of preparedness to intervene emergently and I personally spent this critical care time directly and personally managing the patient. This critical care time included obtaining a history; examining the patient; pulse oximetry; ordering and review of studies; arranging urgent treatment with development of a management plan; evaluation of patient's response to treatment; frequent reassessment; and, discussions with other providers. This critical care time was performed to assess and manage the high probability of imminent, life-threatening deterioration that could result in multi-organ failure. It was exclusive of separately billable procedures and treating other patients. Stability Stability form required: No Heart Score Heart Score: Heart Score Response (Comments) Value History N/A 0 EKG N/A 0 Age N/A 0 Risk Factors N/A 0 Troponin N/A 0 Total 0 I personally scribed for XUAN JORDAN MD ([email or web address]) on 03/04/25 at 00:41. Electronically submitted by Francisco Coe ([email or web address]). XUAN JORDAN MD Mar 04, 2025 00:41
[2025-03-04 00:42] LABS: Hematocrit 44.6 % (41.0-53.0); Hemoglobin 15.4 g/dL (13.5-17.5); Mean Corpuscular Hemoglobin 31.0 pg (28.0-32.0); Mean Corpuscular Volume 89.9 fL (80.0-100.0); Nucleated Red Blood Cells % 0.1 %
[2025-03-04 00:56] LABS: Albumin 4.0 g/dL (3.2-4.8); Anion Gap 7 (5-15); BUN/Creatinine Ratio 12.9 (10.0-20.0); Blood Urea Nitrogen 11 mg/dL (9-23); Calcium 9.1 mg/dL (8.7-10.4); Carbon Dioxide 27 mmol/L (20-31); Chloride 104 mmol/L (98-107); Lipase 50 U/L (12-53); Potassium 4.7 mmol/L (3.5-5.1); Sodium 138 mmol/L (136-145); Total Protein 6.9 g/dL (5.7-8.2)
[2025-03-04 00:57] LABS: Alanine Aminotransferase 504 U/L (7-40); Alkaline Phosphatase 130 U/L (46-116); Bilirubin, Total 2.7 mg/dL (0.2-1.0); Glucose 123 mg/dL (74-106)
[2025-03-04 00:59] LABS: INR 1.02 (0.9-1.15); Partial Thromboplastin Time 27.6 SEC (24.5-34.5); Prothrombin Time 10.8 sec (9.3-11.8)
--- NOTE | 2025-03-04 01:51 | DVH ---
EXAM: US GALLBLADDER HISTORY: RUQ pain COMPARISON: US GALLBLADDER on DOS: 07/19/24 TECHNIQUE: Right upper quadrant ultrasound was performed. FINDINGS: Limited evaluation. The liver measures 17.5 cm and demonstrates heterogeneous echotexture. The pancreas hepatopetal flow. There is no intrahepatic biliary dilatation. There is an 8.4 cm cystic lesion in the right hepatic lobe. There is cholelithiasis. The gallbladder wall measures 2 mm. There is no sonographic michele's sign. The common bile duct measures 5 mm. The pancreas is not well-visualized. The right kidney measures 10.2 cm without calculus, mass, or hydronephrosis. IMPRESSION: 1. Limited evaluation. Cholelithiasis without sonographic evidence of acute cholecystitis. 2. Heterogeneous hepatic echotexture with 8.4 cm cystic lesion, possibly a simple cyst, though confirmation with a nonemergent MRI of the abdomen is suggested.
[2025-03-04] MEDS: SODIUM CHLORIDE 0.9% 1,000 ML IV ONE (03:41)
[2025-03-04] MEDS: ONDANSETRON HCL 4 MG/2 ML VIAL IV ONE (03:48)
[2025-03-04] MEDS ORDERED: MORPHINE SULFATE INJ 2 MG/ml SYRG IV PRN ×2 (04:45→06:15)
[2025-03-04] MEDS ORDERED: HYDROcodone-ACET 5/325MG TAB PO PRN (04:45)
[2025-03-04] MEDS ORDERED: ACETAMINOPHEN 325 MG TAB PO PRN (04:45)
[2025-03-04 05:50] LABS: Hematocrit 42.9 % (41.0-53.0); Hemoglobin 15.0 g/dL (13.5-17.5); Mean Corpuscular Hemoglobin 31.2 pg (28.0-32.0); Mean Corpuscular Volume 89.2 fL (80.0-100.0); Nucleated Red Blood Cells % 0.1 %
[2025-03-04 05:55] LABS: Albumin 4.0 g/dL (3.2-4.8); Anion Gap 9 (5-15); BUN/Creatinine Ratio 14.5 (10.0-20.0); Blood Urea Nitrogen 11 mg/dL (9-23); Calcium 8.7 mg/dL (8.7-10.4); Carbon Dioxide 26 mmol/L (20-31); Chloride 105 mmol/L (98-107); Potassium 4.1 mmol/L (3.5-5.1); Sodium 140 mmol/L (136-145); Total Protein 6.9 g/dL (5.7-8.2)
[2025-03-04 05:59] LABS: Alanine Aminotransferase 609 U/L (7-40); Alkaline Phosphatase 139 U/L (46-116); Bilirubin, Total 3.2 mg/dL (0.2-1.0); Glucose 116 mg/dL (74-106)
--- NOTE | 2025-03-04 06:02 | DVHHP2 ---
History of Present Illness Reason for Visit: Cholelithiasis History of Present Illness The patient is a 74-year-old male with past medical history of gallstones who presented to [facility] ED with complaint of abdominal pain. Patient reports that he was recently diagnosed with gallstones, has been experiencing epigastric right upper quadrant abdominal pain, associated bouts of nausea and vomiting. Patient was seen and evaluated in the ED, laboratory data shows WBC 7.7, platelets 132, sodium 138, potassium 4.7, BUN 11, creatinine 0.85, GFR 91, glucose 123, calcium 9.1, lipase 50, total bilirubin 2.7, AST 610, ALT 504, alkaline phos 130, blood pressure 143/79, heart rate 58, temperature 98.1 F, O2 saturation 97% on room air. Abdomen/pelvis CT revealing cholelithiasis without sonographic evidence of acute cholecystitis; heterogeneous hepatic echotexture with 8.4 cm cystic lesion, possibly a simple cyst. Please see medication orders section in the computer. On my assessment, patient denied chest pain, no headache, dizziness, diaphoresis, shortness of breaths, no abdominal pain, nausea or vomiting at this moment, no diarrhea, fever, no chills. Patient was admitted for further evaluation and medical management. Past Medical History Gallstones Past Surgical History Denies all surgeries Family History Reviewed, noncontributory to the management of this case. Past Social History The patient lives at home, denies smoking, alcohol or illicit drugs abuse. Review of Systems Constitutional: No: Fever, Chills, Sweats, Weakness, Malaise, Other Eyes: No: Pain, Vision change, Conjunctivae inflammation, Eyelid inflammation, Other, Redness ENT: No: Ear pain, Ear discharge, Nose pain, Nose discharge, Nose congestion, Mouth pain, Mouth swelling, Throat pain, Throat swelling, Other Respiratory: No: Cough, Dry, Shortness of breath, SOB with excertion, Wheezing, Hemoptysis, Pleuritic Pain, Sputum, Wheezing, Other Cardiovascular: No: Chest Pain, Palpitations, Orthopnea, Paroxysmal Noc. Dyspnea, Edema, Lt Headedness, Other Gastrointestinal: Nausea, Vomiting, Abdominal Pain; No: Diarrhea, Constipation, Melena, Hematochezia, Other Genitourinary: No Dysuria, No Frequency, No Incontinence, No Hematuria, No Retention, No Other Musculoskeletal: No: other, neck pain, shoulder pain, arm pain, back pain, hand pain, leg pain, foot pain Skin: No: Rash, Lesions, Jaundice, Bruising, Other Neurological: No: Weakness, Numbness, Incoordination, Change in speech, Confusion, Seizures, Other Allergies: Coded Allergies: NO KNOWN ALLERGIES (Unverified , 02/15/18) Medications Current Medications Medications Dose Ordered Sig/Abundio Route Start Time Stop Time Status Last Admin Dose Admin Ceftriaxone Sodium 50 ml @ 100 mls/hr DAILY@09 IV 03/04/25 09:00 Sodium Chloride 1,000 ml @ 60 mls/hr [id number] IV 03/04/25 04:45 Acetaminophen/ Hydrocodone Bitart 1 tab Q4HP PRN PO 03/04/25 04:45 Ondansetron HCl 4 mg Q4HP PRN IV 03/04/25 04:45 Acetaminophen 650 mg Q6HP PRN PO 03/04/25 04:45 Morphine Sulfate 2 mg Q4HPRN PRN IV 03/04/25 04:45 Exam Vital Signs Vital Signs Date Time Temp Pulse Resp B/P (MAP) Pulse Ox O2 Delivery O2 Flow Rate FiO2 03/04/25 04:58 98.0 57 20 149/86 (107) 96 98.0 03/04/25 02:57 Room Air General Appearance: Alert, Oriented X3, Cooperative, No acute distress HEENT: Atraumatic, PERRLA, EOMI, Mucous membr. moist/pink Respiratory: Clear to auscultation, Normal air movement Cardiovascular: Regular rate, Normal S1, Normal S2, No murmurs Abdominal: Normal bowel sounds, Soft, No hepatospenomegaly, No masses, Other (Reports tenderness) Extremities: No clubbing, No cyanosis, No edema, Normal pulses, No tenderness/swelling Skin: No rashes, No significant lesion Neuro: Normal speech, Strength at 5/5 X4 ext, Normal tone, Sensation intact, Cranial nerves 3-12 NL, Reflexes 2+ Psych/Mental Status: Mental status NL, Mood NL Labs/Xrays Labs Test 03/04/25 05:15 03/04/25 00:30 Range/Units White Blood Count 6.2 4.4-10.8 10^3/uL Red Blood Count 4.81 4.5-5.90 10^6/uL Hemoglobin 15.0 13.5-17.5 g/dL Hematocrit 42.9 41.0-53.0 % Mean Corpuscular Volume 89.2 80.0-100.0 fL Mean Corpuscular Hemoglobin 31.2 28.0-32.0 pg Mean Corpuscular Hemoglobin Concent 34.9 32.0-36.0 g/dL Red Cell Distribution Width 15.0 H 11.8-14.3 % Platelet Count 127 L 140-450 10^3/uL Mean Platelet Volume 8.7 6.9-10.8 fL Neutrophils (%) (Auto) 60.0 37.0-80.0 % Lymphocytes (%) (Auto) 32.3 10.0-50.0 % Monocytes (%) (Auto) 7.3 0.0-12.0 % Eosinophils (%) (Auto) 0.0 0.0-7.0 % Basophils (%) (Auto) 0.4 0.0-2.0 % Neutrophils # (Auto) 3.7 1.6-8.6 10 ^3/uL Lymphocytes # (Auto) 2.0 0.4-5.4 10 ^3/uL Monocytes # (Auto) 0.5 0-1.3 10 ^3/uL Eosinophils # (Auto) 0 0-0.8 10 ^3/uL Basophils # (Auto) 0 0-0.2 10 ^3/uL Nucleated Red Blood Cells 0.1 % Sodium Level 140 136-145 mmol/L Potassium Level 4.1 3.5-5.1 mmol/L Chloride Level 105 98-107 mmol/L Carbon Dioxide Level 26 20-31 mmol/L Anion Gap 9 5-15 Blood Urea Nitrogen 11 9-23 mg/dL Creatinine 0.76 0.700-1.30 mg/dL Glomerular Filtration Rate Calc 94 >90 mL/min BUN/Creatinine Ratio 14.5 10.0-20.0 Serum Glucose 116 H 74-106 mg/dL Calcium Level 8.7 8.7-10.4 mg/dL Total Bilirubin 3.2 H 0.2-1.0 mg/dL Aspartate Amino Transferase (AST) 639 H 13-40 U/L Alanine Aminotransferase (ALT) 609 H 7-40 U/L Alkaline Phosphatase 139 H 46-116 U/L Total Protein 6.9 5.7-8.2 g/dL Albumin 4.0 3.2-4.8 g/dL Prothrombin Time 10.8 9.3-11.8 sec Prothrombin Time INR 1.02 0.9-1.15 Activated Partial Thromboplast Time 27.6 24.5-34.5 SEC Lipase 50 12-53 U/L PATIENT: ERICK DICKENSACCT: [id number] UNIT: [id number] : 1950 LOC: ER ROOM / BED: / AGE / SEX: 74 / M ADM STATUS: REG ER SERVICE 0023 ORDERING PHYSICIAN: XUAN JORDAN MD PROCEDURE(s): GBUS - GALLBLADDER REASON: RUQ pain ORDER NUMBER(s): [id number], ACCESSION NUMBER(s): [id number] EXAM: US GALLBLADDER HISTORY: RUQ pain COMPARISON: US GALLBLADDER on DOS: 07/19/24 TECHNIQUE: Right upper quadrant ultrasound was performed. FINDINGS: Limited evaluation. The liver measures 17.5 cm and demonstrates heterogeneous echotexture. The pancreas hepatopetal flow. There is no intrahepatic biliary dilatation. There is an 8.4 cm cystic lesion in the right hepatic lobe. There is cholelithiasis. The gallbladder wall measures 2 mm. There is no sonographic michele's sign. The common bile duct measures 5 mm. The pancreas is not well-visualized. The right kidney measures 10.2 cm without calculus, mass, or hydronephrosis. IMPRESSION: 1. Limited evaluation. Cholelithiasis without sonographic evidence of acute cholecystitis. 2. Heterogeneous hepatic echotexture with 8.4 cm cystic lesion, possibly a simple cyst, though confirmation with a nonemergent MRI of the abdomen is suggested. SEPSIS Sepsis Screen Date sepsis recognized/suspect: Mar 04, 2025 Time Sepsis recognized/suspect: 0301 Recent Procedure: No On Antibiotic Therapy: No Respiratory Rate >20: No Heart Rate >90: No Temp<36 C (96.8 F) or >38.3 C: No SBP <90 or MAP <65 mmHG: No New Acute Mental Status Change: No Is the patient on CPAP, BIPAP,: No Physician Orders Urinalysis (03/04/25 00:23) Gallbladder (03/04/25 00:23) * Surgical Consult (03/04/25 ) Ceftriaxone 1gm/50ml (Rocephin) (03/04/25 09:00) Allergies (03/04/25 04:42) Code Status (03/04/25 04:42) Sodium Chloride 0.9% (03/04/25 04:45) Oxygen Per Hour (03/04/25 04:42) Hydrocodone-Acet 5/325mg Tab ([place] 5/32 (03/04/25 04:45) Ondansetron Hcl (Zofran) (03/04/25 04:45) Complete Blood Count (03/05/25 04:00) Comprehensive Metabolic Panel (03/05/25 04:00) Condition: Serious (03/04/25 04:42) Acetaminophen Tablet (Tylenol Tablet) (03/04/25 04:45) Clear Liq Diet (03/04/25 Breakfast) Bedrest With Bathroom Privileg (03/04/25 04:42) Morphine Sulfate Injection (03/04/25 04:45) Sequential Compression Device (03/04/25 ) Admit (03/04/25 06:01) Nitroglycerin Sublingual (Ntrostat Subli (03/04/25 06:15) Morphine Sulfate Injection (03/04/25 06:15) Notify Of Changes From Base (03/04/25 06:01) Emergency Dysrhythmia Protocol (03/04/25 06:01) Oxygen By Nasal Cannula (03/04/25 06:01) Vital Signs Date Time Temp Pulse Resp B/P (MAP) Pulse Ox O2 Delivery O2 Flow Rate FiO2 03/04/25 04:58 98.0 57 20 149/86 (107) 96 98.0 03/04/25 02:57 98.1 58 20 143/79 (100) 96 98.1 03/04/25 02:57 60 20 97 Room Air 03/04/25 01:00 61 20 149/86 03/04/25 00:30 62 18 143/79 03/03/25 23:46 97.6 60 16 151/98 100 97.6 Laboratory Tests Test 03/04/25 00:30 03/04/25 05:15 White Blood Count 7.7 10^3/uL (4.4-10.8) 6.2 10^3/uL (4.4-10.8) Medications Medications Dose Ordered Sig/Abundio Route Start Time Stop Time Status Last Admin Dose Admin Ceftriaxone Sodium 50 ml @ 100 mls/hr ONCE ONCE IV 03/04/25 03:15 03/04/25 03:44 DC 03/04/25 03:48 100 MLS/HR Hydromorphone HCl 1 mg ONCE ONCE IV 03/04/25 00:30 03/04/25 00:31 DC 03/04/25 00:30 1 MG Metronidazole 100 ml @ 100 mls/hr ONCE ONCE IV 03/04/25 03:15 03/04/25 04:14 DC 03/04/25 03:48 100 MLS/HR Ondansetron HCl 4 mg ONCE ONCE IV 03/04/25 00:30 03/04/25 00:31 DC 03/04/25 03:48 4 MG Sodium Chloride 1,000 ml @ 1,000 mls/hr Q1H ONCE IV 03/04/25 03:15 03/04/25 04:14 DC 03/04/25 03:41 1,000 MLS/HR Assessment/Plan Assessment/Plan Cholelithiasis Intractable abdominal pain Intractable nausea and vomiting Plan 1. Admit to med surge unit 2. Breathing treatment 3. Pain control management 4. Management of fluids and electrolytes 5. Consultation for surgery 6. Diagnostic tests gallbladder ultrasound 7. DVT prophylaxis-on SCDs 8. Repeat labs CBC, CMP in a.m. 9. Continue with current medical management 10. Treatment plan discussed with patient and RN. Patient verbalized understanding. Plan discussed with: Patient, Other (RN) My Orders Orders - JF CONNORS DNP Procedure Category Date Status Time * Surgical Consult CONS 03/04/25 Transmitted Ceftriaxone 1gm/50ml PHA 03/04/25 In Process (Rocephin) 09:00 Allergies DEVIN 03/04/25 In Process 04:42 Code Status CODE 03/04/25 Transmitted 04:42 Sodium Chloride 0.9% PHA 03/04/25 In Process 04:45 Oxygen Per Hour RT 03/04/25 Transmitted 04:42 Hydrocodone-Acet PHA 03/04/25 In Process 5/325mg Tab ([place] 04:45 Ondansetron Hcl PHA 03/04/25 In Process (Zofran) 04:45 Complete Blood Count LAB 03/05/25 Verified 04:00 Comprehensive LAB 03/05/25 Verified Metabolic Panel 04:00 Condition: Serious [facility] 03/04/25 In Process 04:42 Acetaminophen Tablet [facility] 03/04/25 In Process (Tylenol Tablet) 04:45 Clear Liq Diet DIET 03/04/25 Transmitted Breakfast Bedrest With Bathroom [facility] 03/04/25 In Process Privileg 04:42 Morphine Sulfate [facility] 03/04/25 In Process Injection 04:45 Sequential [facility] 03/04/25 In Process Compression Device Admit ADMIT 03/04/25 Verified 06:01 Nitroglycerin [facility] 03/04/25 Verified Sublingual (Ntrostat 06:15 Morphine Sulfate [facility] 03/04/25 Verified Injection 06:15 Notify Md Of Changes [facility] 03/04/25 Verified From Base 06:01 Emergency Dysrhythmia [facility] 03/04/25 Verified Protocol 06:01 Oxygen By Nasal 03/04/25 Verified Cannula 06:01 Problem List: (1) Cholelithiasis (2) Intractable abdominal pain (3) Intractable nausea and vomiting Date of Service: Mar 04, 2025 Billing Provider: JF CONNORS DNP Common Visit Codes: [id number] INP/OBS CARE (HIGH) JF CONNORS DNP Mar 04, 2025 06:02
[2025-03-04] MEDS ORDERED: NITROGLYCERIN 0.4 MG SL TAB SL PRN (06:15)
[2025-03-04] MEDS: SODIUM CHLORIDE 0.9% 1,000 ML IV SCH (07:00)
[2025-03-04 09:00] VITALS: BP 133/69; PULSE 50; RESP 16; TEMP 98.2; O2SAT 97
[2025-03-04] MEDS ORDERED: HYDR-4902 PO (12:45)
[2025-03-04 13:45] VITALS: BP 145/83; PULSE 50; RESP 17; TEMP 97.7; O2SAT 99
[2025-03-04 14:31] LABS: Urine Protein, UAD Negative (Negative)
--- NOTE | 2025-03-04 14:50 | DVHINCON2 ---
Consultation - Surgical Allergies and medications Allergies: Coded Allergies: NO KNOWN ALLERGIES (Unverified , 02/15/18) Home Meds Active Scripts Pantoprazole Sodium Sesquihydr (Protonix) 40 Mg Tab, 40 MG PO DAILY, #30 TAB Prov:KENAN CARLOS MD 07/19/24 Reported Medications Hydrocodone-Acetaminophen (Hydrocodone Bitartrate/AC 5-325 mg) 1 Tab Tab, 1 TAB PO, TAB 03/04/25 Omeprazole (PRILOSEC) 20 Mg Cap, 1 CAP PO DAILY, #90 CAP 1 Refill 02/05/15 Examination Vital signs Vital Signs Date Time Temp Pulse Resp B/P (MAP) Pulse Ox O2 Delivery O2 Flow Rate FiO2 03/04/25 13:45 97.7 50 17 145/83 (103) 99 97.7 03/04/25 13:45 Room Air* 0 21 Medications Current Medications Medications (Trade) Dose Ordered Sig/Abundio Route PRN Reason Start Time Stop Time Status Last Admin Ceftriaxone Sodium 50 ml @ 100 mls/hr DAILY@09 IV 03/04/25 09:00 03/04/25 09:31 Sodium Chloride 1,000 ml @ 60 mls/hr [id number] IV 03/04/25 04:45 03/04/25 07:00 Acetaminophen/ Hydrocodone Bitart ([place] 5/325MG Tab) 1 tab Q4HP PRN PO MODERATE PAIN (4-6 PAIN SCALE) 03/04/25 04:45 Ondansetron HCl (Zofran) 4 mg Q4HP PRN IV NAUSEA / VOMITING 03/04/25 04:45 Acetaminophen (Tylenol Tablet) 650 mg Q6HP PRN PO PAIN SCALE 1-3 OR TEMP>100.4 03/04/25 04:45 Morphine Sulfate 2 mg Q4HPRN PRN IV SEVERE PAIN (7-10 PAIN SCALE) 03/04/25 04:45 Nitroglycerin (Ntrostat Sublingual) 0.4 mg Q5MINP PRN SL FOR CHEST PAIN 03/04/25 06:15 Morphine Sulfate 2 mg Q30M PRN IV FOR CHEST PAIN 03/04/25 06:15 Laboratory Labs Test 03/04/25 14:28 03/04/25 05:15 03/04/25 00:30 Range/Units Urine Color Yellow Yellow Urine Clarity Clear Clear Urine pH 6.5 5.0-9.0 Urine Specific [place] 1.011 1.001-1.035 Urine Protein Negative Negative Urine Ketones Negative Negative Urine Blood Negative Negative /uL Urine Nitrite Negative Negative Urine Bilirubin Negative Negative Urine Urobilinogen Normal Negative mg/dL Urine Leukocyte Esterase Negative Negative /uL Urine RBC <1 0 - 3 /hpf Urine Microscopic WBC < 1 0-3 /HPF Urine Squamous Epithelial Cells None seen <5 /hpf Urine Bacteria None seen None Seen /hpf Urine Glucose Normal Normal mg/dL White Blood Count 6.2 4.4-10.8 10^3/uL Red Blood Count 4.81 4.5-5.90 10^6/uL Hemoglobin 15.0 13.5-17.5 g/dL Hematocrit 42.9 41.0-53.0 % Mean Corpuscular Volume 89.2 80.0-100.0 fL Mean Corpuscular Hemoglobin 31.2 28.0-32.0 pg Mean Corpuscular Hemoglobin Concent 34.9 32.0-36.0 g/dL Red Cell Distribution Width 15.0 H 11.8-14.3 % Platelet Count 127 L 140-450 10^3/uL Mean Platelet Volume 8.7 6.9-10.8 fL Neutrophils (%) (Auto) 60.0 37.0-80.0 % Lymphocytes (%) (Auto) 32.3 10.0-50.0 % Monocytes (%) (Auto) 7.3 0.0-12.0 % Eosinophils (%) (Auto) 0.0 0.0-7.0 % Basophils (%) (Auto) 0.4 0.0-2.0 % Neutrophils # (Auto) 3.7 1.6-8.6 10 ^3/uL Lymphocytes # (Auto) 2.0 0.4-5.4 10 ^3/uL Monocytes # (Auto) 0.5 0-1.3 10 ^3/uL Eosinophils # (Auto) 0 0-0.8 10 ^3/uL Basophils # (Auto) 0 0-0.2 10 ^3/uL Nucleated Red Blood Cells 0.1 % Sodium Level 140 136-145 mmol/L Potassium Level 4.1 3.5-5.1 mmol/L Chloride Level 105 98-107 mmol/L Carbon Dioxide Level 26 20-31 mmol/L Anion Gap 9 5-15 Blood Urea Nitrogen 11 9-23 mg/dL Creatinine 0.76 0.700-1.30 mg/dL Glomerular Filtration Rate Calc 94 >90 mL/min BUN/Creatinine Ratio 14.5 10.0-20.0 Serum Glucose 116 H 74-106 mg/dL Calcium Level 8.7 8.7-10.4 mg/dL Total Bilirubin 3.2 H 0.2-1.0 mg/dL Direct Bilirubin 1.9 H <0.3 mg/dL Aspartate Amino Transferase (AST) 639 H 13-40 U/L Alanine Aminotransferase (ALT) 609 H 7-40 U/L Alkaline Phosphatase 139 H 46-116 U/L Total Protein 6.9 5.7-8.2 g/dL Albumin 4.0 3.2-4.8 g/dL Prothrombin Time 10.8 9.3-11.8 sec Prothrombin Time INR 1.02 0.9-1.15 Activated Partial Thromboplast Time 27.6 24.5-34.5 SEC Lipase 50 12-53 U/L Problem List/Assessment/Plan Problems: (1) Choledocholithiasis with acute cholecystitis Assessment and Plan Mr. Arita is a 74-year-old male who presents with choledocholithiasis and acute cholecystitis. Ultrasound shows stones within the gallbladder lumen. He has transaminitis and AT bili of 3.2 with a direct component of 1.9. We will reassess labs in the morning, we will obtain an MRI, possible surgery tomorrow d epending MRI resolved then if the direct component of the bilirubin starts downtrending. 1. NPO at midnight for possible surgery tomorrow 2. MRCP 3. A.m. labs 4. Pain and nausea control Plan discussed with Plan discussed with: Patient, Spouse ODILIA CROWLEY MD Mar 04, 2025 14:50
--- NOTE | 2025-03-04 15:26 | DVHPN2 ---
Reviewed: H&P Changes from previous H/P or p: No Changes General: Per HPI Eyes: No Pain, No Vision change, No Conjunctivae inflammation, No Eyelid inflammation, No Other, No Redness ENT: No Ear pain, No Ear discharge, No Nose pain, No Nose discharge, No Nose congestion, No Mouth pain, No Mouth swelling, No Throat pain, No Throat swelling, No Other Cardiovascular: No Chest Pain, No Palpitations, No Orthopnea, No Paroxysmal Noc. Dyspnea, No Edema, No Lt Headedness, No Other Respiratory: No Cough, No Dry, No Shortness of breath, No SOB with excertion, No Wheezing, No Hemoptysis, No Pleuritic Pain, No Sputum, No Other Gastrointestinal: Nausea, Vomiting, Abdominal Pain; No Diarrhea, No Constipation, No Melena, No Hematochezia, No Other Genitourinary: No Dysuria, No Frequency, No Incontinence, No Hematuria, No Retention, No Other Musculoskeletal: No other, No neck pain, No shoulder pain, No arm pain, No back pain, No hand pain, No leg pain, No foot pain Skin: No Rash, No Lesions, No Jaundice, No Bruising, No Other Objective Vitals Vital Signs Date Time Temp Pulse Resp B/P (MAP) Pulse Ox O2 Delivery O2 Flow Rate FiO2 03/04/25 13:45 97.7 50 17 145/83 (103) 99 97.7 03/04/25 13:45 Room Air* 0 21 Intake/Output Intake and Output 03/04/25 07:00 Intake Total 1150 ml Balance 1150 ml Intake IV Total 1150 ml Exam GEN: Healthy appearing, well-developed, NAD. HEENT: NC/AT; MMM. CV: RRR, no m/r/g. LUNGS: CTAB, no w/r/c. ABD: Soft, NT/ND, NBS, no masses or organomegaly. EXT: skin Warm, well perfused. no rashes. No clubbing, cyanosis, or edema. NEURO: Ambulating with no limitations. No focal deficits. Medications Current Medications Medications Dose Ordered Sig/Abundio Route Start Time Stop Time Status Last Admin Dose Admin Ceftriaxone Sodium 50 ml @ 100 mls/hr DAILY@09 IV 03/04/25 09:00 03/04/25 09:31 100 MLS/HR Sodium Chloride 1,000 ml @ 60 mls/hr [id number] IV 03/04/25 04:45 03/04/25 07:00 60 MLS/HR Acetaminophen/ Hydrocodone Bitart 1 tab Q4HP PRN PO 03/04/25 04:45 Ondansetron HCl 4 mg Q4HP PRN IV 03/04/25 04:45 Acetaminophen 650 mg Q6HP PRN PO 03/04/25 04:45 Morphine Sulfate 2 mg Q4HPRN PRN IV 03/04/25 04:45 Nitroglycerin 0.4 mg Q5MINP PRN SL 03/04/25 06:15 Morphine Sulfate 2 mg Q30M PRN IV 03/04/25 06:15 Laboratory Results Laboratory Tests 03/04/25 05:15 Chemistry Test 03/04/25 00:30 03/04/25 05:15 Albumin 4.0 g/dL (3.2-4.8) 4.0 g/dL (3.2-4.8) Calcium Level 9.1 mg/dL (8.7-10.4) 8.7 mg/dL (8.7-10.4) Total Protein 6.9 g/dL (5.7-8.2) 6.9 g/dL (5.7-8.2) Coagulation Test 03/04/25 00:30 Prothrombin Time 10.8 sec (9.3-11.8) Prothrombin Time INR 1.02 (0.9-1.15) Activated Partial Thromboplast Time 27.6 SEC (24.5-34.5) Lipid panel Test 03/04/25 00:30 Lipase 50 U/L (12-53) LFT Test 03/04/25 00:30 03/04/25 05:15 Alanine Aminotransferase (ALT) 504 U/L (7-40) H 609 U/L (7-40) H Alkaline Phosphatase 130 U/L (46-116) H 139 U/L (46-116) H Aspartate Amino Transferase (AST) 610 U/L (13-40) H 639 U/L (13-40) H Total Bilirubin 2.7 mg/dL (0.2-1.0) H 3.2 mg/dL (0.2-1.0) H Direct Bilirubin 1.9 mg/dL (<0.3) H Urinalysis Test 03/04/25 14:28 Urine Color Yellow (Yellow) Urine Clarity Clear (Clear) Urine pH 6.5 (5.0-9.0) Urine Specific [place] 1.011 (1.001-1.035) Urine Protein Negative (Negative) Urine Ketones Negative (Negative) Urine Blood Negative /uL (Negative) Urine Nitrite Negative (Negative) Urine Bilirubin Negative (Negative) Urine Urobilinogen Normal mg/dL (Negative) Urine Leukocyte Esterase Negative /uL (Negative) Urine RBC <1 /hpf (0 - 3) Urine Microscopic WBC < 1 /HPF (0-3) Urine Squamous Epithelial Cells None seen /hpf (<5) Urine Bacteria None seen /hpf (None Seen) Urine Glucose Normal mg/dL (Normal) Labs and/or images reviewed: Labs reviewed by me, Image(s) reviewed by me Assessment/Plan Assessment/Plan 4-year-old male with past medical history of gallstones who presented to [facility] ED with complaint of abdominal pain. Patient reports that he was recently diagnosed with gallstones, has been experiencing epigastric right upper quadrant abdominal pain, associated bouts of nausea and vomiting. 03/04: Admitted for abdominal pain as well stones on ultrasound, surgery was consulted. But chemistry shows obstructive pattern MRCP needed concern for biliary obstruction.. Appreciate surgical follow up. Surgery wants NPO midnight - MRCP concerning for choledocholithiasis CBD stone is 5 mm, there is cholelithiasis without evidence of acute cholecystitis. And they were has simple cyst 8 cm. We will continue to trend hepatic panel. For any concern of ongoing biliary obstruction, we will need transfer for ERCP. Patient has asymptomatic bradycardia we will consult Cardiology. Diagnosis: Choledocholithiasis Cholecystitis ruled out Asymptomatic bradycardia Thrombocytopenia Hyperbilirubinemia Transaminitis ALP elevated Plan: Ceftriaxone IV metronidazole Continue home meds NPO midnight GI consult Med surge Full code Plan discussed with: Patient Date of Service: Mar 04, 2025 Billing Provider: TERRY HOWARD MD Common Visit Codes: [id number] INP/OBS CARE(HIGH) TERRY HOWARD MD Mar 04, 2025 15:26
[2025-03-04 16:54] VITALS: BP 152/77; PULSE 50; RESP 16; TEMP 98; O2SAT 97
--- NOTE | 2025-03-04 17:15 | DVH ---
CLINICAL HISTORY: Elevated bilirubin level with direct predominant. TECHNIQUE: MRI and MRCP of the abdomen was performed without gadolinium. 3D reconstructed images were created under concurrent radiologist supervision and archived on the PACS system. COMPARISON: None available. FINDINGS: Minimal dependent subsegmental atelectasis of the lung bases. Junction of the left and right hepatic lobe with a simple cyst measuring up to 8.3 cm. No evidence of a solid hepatic lesion. Decompressed gallbladder filled with multiple small stones measuring up to 7 mm. No abnormal gallbladder wall thickening or pericholecystic liquid to suggest acute cholecystitis. No intra- or extrahepatic biliary duct dilation. Gallstone at the distal aspect of the common bile duct (CBD) measuring approximately 5 mm (07/05, 07/16), which is consistent with choledocholithiasis. Unremarkable spleen, pancreas, and adrenal glands. Left kidney interpolar [id number] pole with a large exophytic cyst measuring 7.8 cm. No hydronephrosis. IMPRESSION: 1. Choledocholithiasis (with a distal CBD gallstone measuring up to 5 mm) as described. 2. Cholelithiasis without evidence of acute cholecystitis. 3. Liver with a simple cyst measuring up to 8.3 cm.
--- NOTE | 2025-03-04 18:06 | DVH ---
INDICATION: pre-op TECHNIQUE: Frontal view of the chest. COMPARISON: XR CHEST 2 VIEW on DOS: 10/26/24, CR CHEST 2 VIEW on DOS: 08/26/23 FINDINGS/IMPRESSION: Prominence of the interstitial markings. Unremarkable cardiomediastinal silhouette. No pleural effusion or pneumothorax. No acute osseous abnormality.
[2025-03-04 20:00] VITALS: PULSE 51; O2SAT 95
--- NOTE | 2025-03-04 20:13 | DVHINCON2 ---
Date of service: Mar 04, [address] Garcia Reason for Consultation Possible choledocholithiasis History of Present Illness History of Present Illness The patient is a 74-year-old male with past medical history of gallstones who presented to [facility] ED with complaint of abdominal pain. Patient reports that he was recently diagnosed with gallstones, has been experiencing epigastric right upper quadrant abdominal pain, associated bouts of nausea and vomiting. Abdomen/pelvis CT revealing cholelithiasis without sonographic evidence of acute cholecystitis; heterogeneous hepatic echotexture with 8.4 cm cystic lesion, possibly a simple cyst. MRCP suggested evidence of a 5 mm distal CBD stone. Patient's liver enzymes are trending upwards now with a bilirubin of 3.2. His lipase level is normal Past Medical History Past Medical History Gallstones GERD Arthritis Past Surgical History Cataracts Family History: Patient reports no known family medical history. Allergies: Coded Allergies: NO KNOWN ALLERGIES (Unverified , 02/15/18) Home Meds Active Scripts Pantoprazole Sodium Sesquihydr (Protonix) 40 Mg Tab, 40 MG PO DAILY, #30 TAB Prov:KENAN CARLOS MD 07/19/24 Reported Medications Hydrocodone-Acetaminophen (Hydrocodone Bitartrate/AC 5-325 mg) 1 Tab Tab, 1 TAB PO, TAB 03/04/25 Omeprazole (PRILOSEC) 20 Mg Cap, 1 CAP PO DAILY, #90 CAP 1 Refill 02/05/15 Current Medications Current Medications Medications (Trade) Dose Ordered Sig/Abundio Route PRN Reason Start Time Stop Time Status Last Admin Ceftriaxone Sodium 50 ml @ 100 mls/hr DAILY@09 IV 03/04/25 09:00 03/04/25 09:31 Sodium Chloride 1,000 ml @ 60 mls/hr [id number] IV 03/04/25 04:45 03/04/25 07:00 Acetaminophen/ Hydrocodone Bitart ([place] 5/325MG Tab) 1 tab Q4HP PRN PO MODERATE PAIN (4-6 PAIN SCALE) 03/04/25 04:45 Ondansetron HCl (Zofran) 4 mg Q4HP PRN IV NAUSEA / VOMITING 03/04/25 04:45 Acetaminophen (Tylenol Tablet) 650 mg Q6HP PRN PO PAIN SCALE 1-3 OR TEMP>100.4 03/04/25 04:45 Morphine Sulfate 2 mg Q4HPRN PRN IV SEVERE PAIN (7-10 PAIN SCALE) 03/04/25 04:45 Nitroglycerin (Ntrostat Sublingual) 0.4 mg Q5MINP PRN SL FOR CHEST PAIN 03/04/25 06:15 Morphine Sulfate 2 mg Q30M PRN IV FOR CHEST PAIN 03/04/25 06:15 Metronidazole 100 ml @ 100 mls/hr Q8H IV 03/04/25 15:00 03/04/25 16:52 Vital Signs Vital Signs Date Time Temp Pulse Resp B/P (MAP) Pulse Ox O2 Delivery O2 Flow Rate FiO2 03/04/25 16:54 98.0 50 16 152/77 (102) 97 98.0 03/04/25 13:45 Room Air* 0 21 Physical Exam GEN: Healthy appearing, well-developed, NAD. HEENT: NC/AT; MMM. CV: RRR, no m/r/g. LUNGS: CTAB, no w/r/c. ABD: Soft, NT/ND, NBS, no masses or organomegaly. EXT: skin Warm, well perfused. no rashes. No clubbing, cyanosis, or edema. NEURO: Ambulating with no limitations. No focal deficits. Labs/Diagnostic Data Labs Test 03/04/25 14:28 03/04/25 05:15 03/04/25 00:30 Range/Units Urine Color Yellow Yellow Urine Clarity Clear Clear Urine pH 6.5 5.0-9.0 Urine Specific [place] 1.011 1.001-1.035 Urine Protein Negative Negative Urine Ketones Negative Negative Urine Blood Negative Negative /uL Urine Nitrite Negative Negative Urine Bilirubin Negative Negative Urine Urobilinogen Normal Negative mg/dL Urine Leukocyte Esterase Negative Negative /uL Urine RBC <1 0 - 3 /hpf Urine Microscopic WBC < 1 0-3 /HPF Urine Squamous Epithelial Cells None seen <5 /hpf Urine Bacteria None seen None Seen /hpf Urine Glucose Normal Normal mg/dL White Blood Count 6.2 4.4-10.8 10^3/uL Red Blood Count 4.81 4.5-5.90 10^6/uL Hemoglobin 15.0 13.5-17.5 g/dL Hematocrit 42.9 41.0-53.0 % Mean Corpuscular Volume 89.2 80.0-100.0 fL Mean Corpuscular Hemoglobin 31.2 28.0-32.0 pg Mean Corpuscular Hemoglobin Concent 34.9 32.0-36.0 g/dL Red Cell Distribution Width 15.0 H 11.8-14.3 % Platelet Count 127 L 140-450 10^3/uL Mean Platelet Volume 8.7 6.9-10.8 fL Neutrophils (%) (Auto) 60.0 37.0-80.0 % Lymphocytes (%) (Auto) 32.3 10.0-50.0 % Monocytes (%) (Auto) 7.3 0.0-12.0 % Eosinophils (%) (Auto) 0.0 0.0-7.0 % Basophils (%) (Auto) 0.4 0.0-2.0 % Neutrophils # (Auto) 3.7 1.6-8.6 10 ^3/uL Lymphocytes # (Auto) 2.0 0.4-5.4 10 ^3/uL Monocytes # (Auto) 0.5 0-1.3 10 ^3/uL Eosinophils # (Auto) 0 0-0.8 10 ^3/uL Basophils # (Auto) 0 0-0.2 10 ^3/uL Nucleated Red Blood Cells 0.1 % Sodium Level 140 136-145 mmol/L Potassium Level 4.1 3.5-5.1 mmol/L Chloride Level 105 98-107 mmol/L Carbon Dioxide Level 26 20-31 mmol/L Anion Gap 9 5-15 Blood Urea Nitrogen 11 9-23 mg/dL Creatinine 0.76 0.700-1.30 mg/dL Glomerular Filtration Rate Calc 94 >90 mL/min BUN/Creatinine Ratio 14.5 10.0-20.0 Serum Glucose 116 H 74-106 mg/dL Calcium Level 8.7 8.7-10.4 mg/dL Total Bilirubin 3.2 H 0.2-1.0 mg/dL Direct Bilirubin 1.9 H <0.3 mg/dL Aspartate Amino Transferase (AST) 639 H 13-40 U/L Alanine Aminotransferase (ALT) 609 H 7-40 U/L Alkaline Phosphatase 139 H 46-116 U/L Total Protein 6.9 5.7-8.2 g/dL Albumin 4.0 3.2-4.8 g/dL Prothrombin Time 10.8 9.3-11.8 sec Prothrombin Time INR 1.02 0.9-1.15 Activated Partial Thromboplast Time 27.6 24.5-34.5 SEC Lipase 50 12-53 U/L MRCP IMPRESSION: 1. Choledocholithiasis (with a distal CBD gallstone measuring up to 5 mm) as described. 2. Cholelithiasis without evidence of acute cholecystitis. 3. Liver with a simple cyst measuring up to 8.3 cm. Problems(with codes): (1) Choledocholithiasis with acute cholecystitis (2) Intractable nausea and vomiting (3) Intractable abdominal pain (4) Cholelithiasis (5) Cholecystitis Plan/Recommendation Assessment plan Patient is likely having biliary colic due to cholelithiasis and possible suspected small 5 mm CBD stone With the small size of the stone it is likely that the small stone may pass through However at this time it appears to be causing partial obstruction with rising bilirubin and alkaline phosphatase Continue IV antibiotics, keep him NPO, monitor lipase levels and trend lab tests Surgical consult is following patient, he will decide about possible preop ERCP or proceeding with laparoscopic cholecystectomy Once again thank you for allowing me to participate in the care of this patient, I will follow up patient with you Plan discussed with: Other (Nurse) MENDEZ GEORGE MD Mar 04, 2025 20:13
--- NOTE | 2025-03-04 20:24 | DVHINCON2 ---
Date of service: Mar 04, 2025 Referring Physician Jose Reason for Consultation Bradycardia, Cardiac clearance for surgery History of Present Illness This is a 74-year-old male with a past medical history of gallstones who presented to the ED with a complaint of abdominal pain. Patient reports that he was recently diagnosed with gallstones, has been experiencing epigastric right upper quadrant abdominal pain, associated bouts of nausea and vomiting. WBC 7.7, PLT 132, NA 138, K 4.7, BUN 11, MATRIX BATH ATTENDANT 0.85, GFR 91, GLUC 123, CA 9.1, Lipase 50, total bilirubin 2.7, AST 610, ALT 504, alkaline phos 130. CT abdomen/pelvis showed cholelithiasis without sonographic evidence of acute cholecystitis; heterogeneous hepatic echotexture with 8.4 cm cystic lesion, possibly a simple cyst. Patient was admitted to the hospital. I am asked to consult on this patient. Family History: Patient reports no known family medical history. Allergies: Coded Allergies: NO KNOWN ALLERGIES (Unverified , 02/15/18) Home Meds Active Scripts Pantoprazole Sodium Sesquihydr (Protonix) 40 Mg Tab, 40 MG PO DAILY, #30 TAB Prov:KENAN CARLOS MD 07/19/24 Reported Medications Hydrocodone-Acetaminophen (Hydrocodone Bitartrate/AC 5-325 mg) 1 Tab Tab, 1 TAB PO, TAB 03/04/25 Omeprazole (PRILOSEC) 20 Mg Cap, 1 CAP PO DAILY, #90 CAP 1 Refill 02/05/15 Current Medications Current Medications Medications (Trade) Dose Ordered Sig/Abundio Route PRN Reason Start Time Stop Time Status Last Admin Ceftriaxone Sodium 50 ml @ 100 mls/hr DAILY@09 IV 03/04/25 09:00 03/04/25 09:31 Sodium Chloride 1,000 ml @ 60 mls/hr [id number] IV 03/04/25 04:45 03/04/25 07:00 Acetaminophen/ Hydrocodone Bitart ([place] 5/325MG Tab) 1 tab Q4HP PRN PO MODERATE PAIN (4-6 PAIN SCALE) 03/04/25 04:45 Ondansetron HCl (Zofran) 4 mg Q4HP PRN IV NAUSEA / VOMITING 03/04/25 04:45 Acetaminophen (Tylenol Tablet) 650 mg Q6HP PRN PO PAIN SCALE 1-3 OR TEMP>100.4 03/04/25 04:45 Morphine Sulfate 2 mg Q4HPRN PRN IV SEVERE PAIN (7-10 PAIN SCALE) 03/04/25 04:45 Nitroglycerin (Ntrostat Sublingual) 0.4 mg Q5MINP PRN SL FOR CHEST PAIN 03/04/25 06:15 Morphine Sulfate 2 mg Q30M PRN IV FOR CHEST PAIN 03/04/25 06:15 Metronidazole 100 ml @ 100 mls/hr Q8H IV 03/04/25 15:00 03/04/25 16:52 Review of Systems Constitutional: denies: chills, diaphoresis, fatigue, fever, malaise, sweats, weakness, others EENTM: denies: blurred vision, double vision, ear bleeding, ear discharge, ear drainage, ear pain, ear ringing, eye pain, eye redness, hearing loss, mouth pain, mouth swelling, nasal discharge, nose bleeding, nose congestion, nose pain, photophobia, tearing, throat pain, throat swelling, voice changes, others Respiratory: denies: cough, hemoptysis, orthopnea, SOB at rest, shortness of breath, SOB with excertion, stridor, wheezing, others Cardiovascular: denies: chest pain, dizzy spells, diaphoresis, Dyspnea on exertion, edema, irregular heart beat, left arm pain, lightheadedness, palpitations, PND, syncope, others Gastrointestinal: reports: abdominal pain, nausea, vomiting; denies: abdomen distended, blood streaked bowels, constipated, diarrhea, dysphagia, difficulty swallowing, hematemesis, melena, poor appetite, poor fluid intake, rectal bleeding, rectal pain, others Genitourinary: denies: burning, dysuria, flank pain, frequency, hematuria, incontinence, penile discharge, penile sore, pain, testicle pain, testicle swe lling, urgency, others Neurological: denies: dizziness, fainting, headache, left sided numbness, left sided weakness, numbness, paresthesia, pre-existing deficit, right sided numbness, right sided weakness, seizure, speech problems, tingling, tremors, weakness, others Musculoskeletal: denies: back pain, gout, joint pain, joint swelling, muscle pain, muscle stiffness, neck pain, others Integumetry: denies: bruises, change in color, change in hair/nails, dryness, laceration, lesions, lumps, rash, wounds, others Allergic/Immunocompromised: denies: Difficulty Healing, Frequent Infections, Hives, Itching, others Hematologic/Lymphatic: denies: anemia, blood clots, easy bleeding, easy bruising, swollen glands, others Endocrine: denies: excessive hunger, excessive sweating, excessive thirst, excessive urination, flushing, intolerance to cold, intolerance to heat, unexplained weight gain, unexplained weight loss, others Psychiatric: denies: anxiety, bipolar disorder, depression, hopeless, panic disorder, schizophrenia, sleepless, suicidal, others Vital Signs Vital Signs Date Time Temp Pulse Resp B/P (MAP) Pulse Ox O2 Delivery O2 Flow Rate FiO2 03/04/25 16:54 98.0 50 16 152/77 (102) 97 98.0 03/04/25 13:45 Room Air* 0 21 Physical Exam GENERAL: Alert and oriented x 3. No acute distress. EYES: PERRL, EOMI. Anicteric. HENT: Moist mucous membranes. LUNGS: Clear to auscultation bilaterally. CARDIOVASCULAR: Regular rate and rhythm. ABDOMEN: Soft, nontender and nondistended. EXTREMITIES: No edema. NEUROLOGIC: No focal neurological deficits. SKIN: Warm, dry. Labs/Diagnostic Data Labs Test 03/04/25 14:28 03/04/25 05:15 03/04/25 00:30 Range/Units Urine Color Yellow Yellow Urine Clarity Clear Clear Urine pH 6.5 5.0-9.0 Urine Specific [place] 1.011 1.001-1.035 Urine Protein Negative Negative Urine Ketones Negative Negative Urine Blood Negative Negative /uL Urine Nitrite Negative Negative Urine Bilirubin Negative Negative Urine Urobilinogen Normal Negative mg/dL Urine Leukocyte Esterase Negative Negative /uL Urine RBC <1 0 - 3 /hpf Urine Microscopic WBC < 1 0-3 /HPF Urine Squamous Epithelial Cells None seen <5 /hpf Urine Bacteria None seen None Seen /hpf Urine Glucose Normal Normal mg/dL White Blood Count 6.2 4.4-10.8 10^3/uL Red Blood Count 4.81 4.5-5.90 10^6/uL Hemoglobin 15.0 13.5-17.5 g/dL Hematocrit 42.9 41.0-53.0 % Mean Corpuscular Volume 89.2 80.0-100.0 fL Mean Corpuscular Hemoglobin 31.2 28.0-32.0 pg Mean Corpuscular Hemoglobin Concent 34.9 32.0-36.0 g/dL Red Cell Distribution Width 15.0 H 11.8-14.3 % Platelet Count 127 L 140-450 10^3/uL Mean Platelet Volume 8.7 6.9-10.8 fL Neutrophils (%) (Auto) 60.0 37.0-80.0 % Lymphocytes (%) (Auto) 32.3 10.0-50.0 % Monocytes (%) (Auto) 7.3 0.0-12.0 % Eosinophils (%) (Auto) 0.0 0.0-7.0 % Basophils (%) (Auto) 0.4 0.0-2.0 % Neutrophils # (Auto) 3.7 1.6-8.6 10 ^3/uL Lymphocytes # (Auto) 2.0 0.4-5.4 10 ^3/uL Monocytes # (Auto) 0.5 0-1.3 10 ^3/uL Eosinophils # (Auto) 0 0-0.8 10 ^3/uL Basophils # (Auto) 0 0-0.2 10 ^3/uL Nucleated Red Blood Cells 0.1 % Sodium Level 140 136-145 mmol/L Potassium Level 4.1 3.5-5.1 mmol/L Chloride Level 105 98-107 mmol/L Carbon Dioxide Level 26 20-31 mmol/L Anion Gap 9 5-15 Blood Urea Nitrogen 11 9-23 mg/dL Creatinine 0.76 0.700-1.30 mg/dL Glomerular Filtration Rate Calc 94 >90 mL/min BUN/Creatinine Ratio 14.5 10.0-20.0 Serum Glucose 116 H 74-106 mg/dL Calcium Level 8.7 8.7-10.4 mg/dL Total Bilirubin 3.2 H 0.2-1.0 mg/dL Direct Bilirubin 1.9 H <0.3 mg/dL Aspartate Amino Transferase (AST) 639 H 13-40 U/L Alanine Aminotransferase (ALT) 609 H 7-40 U/L Alkaline Phosphatase 139 H 46-116 U/L Total Protein 6.9 5.7-8.2 g/dL Albumin 4.0 3.2-4.8 g/dL Prothrombin Time 10.8 9.3-11.8 sec Prothrombin Time INR 1.02 0.9-1.15 Activated Partial Thromboplast Time 27.6 24.5-34.5 SEC Lipase 50 12-53 U/L Assessment Choledocholithiasis. Asymptomatic bradycardia. Thrombocytopenia. Hyperbilirubinemia. Transaminitis. ALP elevated. Plan/Recommendation I agree with your ongoing assessment and care of plan. Morphine and [place] for pain management. IV antibiotics as ordered. Nitro SL. Additional plan as per the hospital course. A total of 45 minutes was spent reviewing the patient record, examining the patient, making a diagnostic and therapeutic plan, discussing this plan with medical personnel, following up on diagnostic studies and following the patient for clinical stability excluding any and all procedures. At least 50% of this time was spent in direct, [id number] contact. Plan discussed with: Patient ALLY VENTURA MD Mar 04, 2025 18:33
[2025-03-04 21:08] VITALS: BP 142/83; PULSE 51; RESP 17; TEMP 98.2; O2SAT 95
[2025-03-05] VITALS (10 sets, daily range): BP systolic 115–153; BP diastolic 69–90; PULSE 48–71; RESP 12–19; TEMP 97.1–98; O2SAT 92–98
[2025-03-05 06:49] LABS: Hematocrit 40.0 % (41.0-53.0); Hemoglobin 13.8 g/dL (13.5-17.5); Mean Corpuscular Hemoglobin 30.9 pg (28.0-32.0); Mean Corpuscular Volume 89.8 fL (80.0-100.0); Nucleated Red Blood Cells % 0.1 %
[2025-03-05 07:04] LABS: INR 2.07 (0.9-1.15); Prothrombin Time 20.4 sec (9.3-11.8)
[2025-03-05 07:19] LABS: Anion Gap 8 (5-15); BUN/Creatinine Ratio 9.3 (10.0-20.0); Blood Urea Nitrogen 9 mg/dL (9-23); Calcium 8.7 mg/dL (8.7-10.4); Carbon Dioxide 27 mmol/L (20-31); Chloride 107 mmol/L (98-107); Glucose 85 mg/dL (74-106); Potassium 4.2 mmol/L (3.5-5.1); Sodium 142 mmol/L (136-145)
[2025-03-05 07:20] LABS: Total Protein 6.1 g/dL (5.7-8.2)
[2025-03-05 07:21] LABS: Alanine Aminotransferase 429 U/L (7-40); Albumin 3.6 g/dL (3.2-4.8); Alkaline Phosphatase 126 U/L (46-116)
[2025-03-05 07:25] LABS: Bilirubin, Total 1.3 mg/dL (0.2-1.0)
[2025-03-05 09:35] LABS: INR 1.89 (0.9-1.15); Partial Thromboplastin Time 28.0 SEC (24.5-34.5); Prothrombin Time 18.8 sec (9.3-11.8)
[2025-03-05] MEDS: SUCCINYLCHOLINE CHLORIDE 20 MG/ML 10ML VIAL IV ONE (10:01)
[2025-03-05] MEDS ORDERED: fentaNYL CITRATE 100 MCG/2 ML VL ONE (10:05)
[2025-03-05] MEDS ORDERED: MIDAZOLAM HCL 2MG/2ML 2ml VIAL (1mg/ml) ONE (10:05)
[2025-03-05] MEDS ORDERED: MEPERIDINE HCL (25 MG/ML) 1ML VIAL ONE (10:05)
[2025-03-05] MEDS ORDERED: MIDAZOLAM HCL 2MG/2ML 2ml VIAL (1mg/ml) IV PRN (10:30)
[2025-03-05] MEDS ORDERED: hydrALAZINE HCL 20 MG/ML VL IV PRN (10:30)
[2025-03-05] MEDS ORDERED: MORPHINE SULFATE 4 MG/ML SYR/VIAL IV PRN (10:30)
[2025-03-05] MEDS ORDERED: ONDANSETRON HCL 4 MG/2 ML VIAL IV PRN (10:30)
[2025-03-05] MEDS ORDERED: ROCURONIUM 10MG/ML 10ML VIAL IV ONE (10:45)
[2025-03-05] MEDS ORDERED: ETOMIDATE (2MG/ML) 20ML VIAL IV ONE (10:45)
[2025-03-05] MEDS ORDERED: ONDANSETRON HCL 4 MG/2 ML VIAL ONE (10:45)
[2025-03-05] MEDS ORDERED: SUGAMMADEX 200mg/2ml Vial (100MG/ML) IV ONE (11:35)
[2025-03-05] MEDS: BUPIVACAINE 0.25% INJ 50ML VIAL ONE (11:45)
[2025-03-05] MEDS: HYDROmorphone HCL 2 MG/ML VL/or syr IV PRN (12:20)
[2025-03-05] MEDS: ONDANSETRON HCL 4 MG/2 ML VIAL IV PRN (12:32)
--- NOTE | 2025-03-05 14:03 | DVHOP2 ---
Operative Report - 2 Report Details Date: 03/05/25 Preop Diagnosis: Choledocholithiasis Postop Diagnosis: Same Surgeon: Odilia Hung MD Anesthesiologist: Dr. Eric Anesthesia: General Consent: The patient was informed of the risks and benefits of the procedure. These include but are not limited to complications of anesthesia, postoperative infection, incomplete relief of symptoms, recurrence of symptoms, damage to blood vessels, nerves and tendons, deep venous thrombosis, pulmonary embolism and possible need for repeat surgery in the future. Complications: None Estimated Blood Loss: 15ml Findings: Contracted an intrahepatic gallbladder Indications for Surgery: Choledocholithiasis Name of Procedure Performed Laparoscopic cholecystectomy Procedure Details Procedure Details: Upon arriving to the operating room the patient was transferred to the operating table placed in the supine position with arms extended. General endotracheal anesthesia was induced. Time-out was observed. Patient was prepped and draped in the standard sterile surgical fashion with chlorhexidine. I then proceeded to make an infraumbilical curvilinear incision and carried the dissection down to fascia. Once at the fascia I grasped the umbilical stalk with a Atiya clamp and walked it down to the base. Once at the base of the umbilical stalk I gained entry into the peritoneal cavity utilizing Palencia technique. I then placed a fascial retention stitch with 0 Vicryl in [id number] fashion. I then introduced the Palencia cannula and insufflated the peritoneal cavity to 15 mmHg with toleration. Patient was then placed in the reverse Trendelenburg [id number] position. I then placed 3 additional 5 mm working ports under direct vision at the epigastric area, right midclavicular subcostal area, and right flank area. I then directed my attention to the liver and gallbladder. The gallbladder was contracted, an intrahepatic. I then proceeded to grasp the fundus of the gallbladder and and retracted cephalad and towards the right shoulder. A 2nd retractor was placed at the infundibulum and retracted laterally. I then proceeded to incise the peritoneum at the base of the gallbladder and carried the dissection down to the liver, thus exposing cholesterol angle. Then I carefully fully skeletonized Calot triangle until 2 and only 2 structures were seen entering the gallbladder, cystic duct and cystic artery. During this dissection all the little small vessel seen were clipped 2 ensure hemostasis. I then proceeded to milk the cystic duct for any stones, the cystic duct was enlarged, but no stones felt. I then proceeded to place 3 proximal 5 mm clips in the duct and 1 distal. I then proceeded to place 2 proximal 5 mm clips in the artery and 1 distal. I then transected both the artery and duct. The gallbladder was then removed from the liver utilizing cautery. The gallbladder was intrahepatic and with doubt any edema plane, so all dissection was done carefully. There was some bleeding from a lateral vessel, hemostasis was achieved with clips. During the dissection of the gallbladder I made a hole in it and I had some bile and several stones spillage. Once the gallbladder was completely off of the liver bed it was placed in the Endo-Catch bag. I also placed the spilled stones into the Endo-Catch bag. Endo-Catch bag was then removed out of the peritoneal cavity through the umbilical site. I then proceeded to look at the gallbladder fossa, there were several areas of ooze coming from the liver bed. All these areas were cauterized, hemostasis achieved. I then serially irrigated the gallbladder fossa under the liver and over the liver until all effluent was clear. I took a 2nd look at the gallbladder fossa there was very minimal slow ooze coming from the tissue surrounding the fanny, and thus I decided to place a sheet of Surgicel fibrillar in the gallbladder fossa. Hemostasis achieved. This concluded the intraperitoneal portion of the operation. 5 mm ports were removed under direct vision, no bleeding coming from peritoneal cavity. peritoneal cavity was allowed to fully desufflate. Previous fascial retention stitch was closed. All skin sites were closed with 4-0 Monocryl and Dermabond. 0.25% Marcaine was used as local anesthetic. All counts complete and correct at the end of procedure. Patient tolerated the procedure well and was transferred to PACU in stable condition Specimen: Gallbladder and contents Condition Stable Disposition Still a Patient ODILIA CROWLEY MD Mar 05, 2025 14:03
[2025-03-05] MEDS: ACETAMINOPHEN 325 MG TAB PO SCH (14:20)
--- NOTE | 2025-03-05 14:22 | DVHPN2 ---
Subjective Status post cholecystectomy Reviewed: H&P Changes from previous H/P or p: No Changes Objective Vitals Vital Signs Date Time Temp Pulse Resp B/P (MAP) Pulse Ox O2 Delivery O2 Flow Rate FiO2 03/05/25 13:20 56 18 153/90 (111) 03/05/25 13:10 98 03/05/25 12:55 Room Air 0 03/05/25 12:55 97 03/05/25 12:10 97.3 97.3 Intake/Output Intake and Output 03/05/25 07:00 Intake Total 970 ml Output Total 800 ml Balance 170 ml Intake Oral 0 ml IV Total 970 ml Output Urine Total 800 ml # Voids 3 Exam General alert and oriented no apparent distress Cardio RRR Lungs clear to auscultate Medications Current Medications Medications Dose Ordered Sig/Abundio Route Start Time Stop Time Status Last Admin Dose Admin Ceftriaxone Sodium 50 ml @ 100 mls/hr DAILY@09 IV 03/04/25 09:00 03/05/25 12:36 100 MLS/HR Sodium Chloride 1,000 ml @ 60 mls/hr [id number] IV 03/04/25 04:45 03/05/25 12:33 60 MLS/HR Acetaminophen/ Hydrocodone Bitart 1 tab Q4HP PRN PO 03/04/25 04:45 Ondansetron HCl 4 mg Q4HP PRN IV 03/04/25 04:45 03/05/25 12:32 4 MG Nitroglycerin 0.4 mg Q5MINP PRN SL 03/04/25 06:15 Morphine Sulfate 2 mg Q30M PRN IV 03/04/25 06:15 Metronidazole 100 ml @ 100 mls/hr Q8H IV 03/04/25 15:00 03/05/25 06:12 100 MLS/HR Acetaminophen 650 mg Q6HR PO 03/05/25 14:00 Acetaminophen/ Hydrocodone Bitart 1 tab Q4HP PRN PO 03/05/25 14:00 Laboratory Results Laboratory Tests 03/05/25 06:00 Chemistry Test 03/05/25 06:00 Albumin 3.6 g/dL (3.2-4.8) Calcium Level 8.7 mg/dL (8.7-10.4) Total Protein 6.1 g/dL (5.7-8.2) Coagulation Test 03/05/25 06:00 03/05/25 08:41 Prothrombin Time 20.4 sec (9.3-11.8) H 18.8 sec (9.3-11.8) H Prothrombin Time INR 2.07 (0.9-1.15) H 1.89 (0.9-1.15) H Activated Partial Thromboplast Time 28.0 SEC (24.5-34.5) LFT Test 03/05/25 06:00 Alanine Aminotransferase (ALT) 429 U/L (7-40) H Alkaline Phosphatase 126 U/L (46-116) H Aspartate Amino Transferase (AST) 241 U/L (13-40) H Direct Bilirubin 0.5 mg/dL (<0.3) H Total Bilirubin 1.3 mg/dL (0.2-1.0) H Urinalysis Test 03/04/25 14:28 Urine Color Yellow (Yellow) Urine Clarity Clear (Clear) Urine pH 6.5 (5.0-9.0) Urine Specific [place] 1.011 (1.001-1.035) Urine Protein Negative (Negative) Urine Ketones Negative (Negative) Urine Blood Negative /uL (Negative) Urine Nitrite Negative (Negative) Urine Bilirubin Negative (Negative) Urine Urobilinogen Normal mg/dL (Negative) Urine Leukocyte Esterase Negative /uL (Negative) Urine RBC <1 /hpf (0 - 3) Urine Microscopic WBC < 1 /HPF (0-3) Urine Squamous Epithelial Cells None seen /hpf (<5) Urine Bacteria None seen /hpf (None Seen) Urine Glucose Normal mg/dL (Normal) Assessment/Plan Assessment/Plan Cholelithiasis status post cholecystectomy Plan Discussed with Dr. Fields Monitor lab IV antibiotic Supportive care Plan discussed with: Patient, Spouse Date of Service: Mar 05, 2025 Billing Provider: AMBERLY CROW Common Visit Codes: [id number] INP/OBS CARE(HIGH) AMBERLY CROW Mar 05, 2025 14:22
[2025-03-05] MEDS: HYDROcodone-ACET 10/325MG TAB PO PRN (15:19)
--- NOTE | 2025-03-05 17:44 | DVHPNRES ---
Progress Note Date Seen: Mar 05, 2025 Resident Creating Document: AALIYAH NORMAN RESIDENT Medical Necessity Reason Pt with a Central, PICC or Fol: No Subjective Review of Systems This is a 74-year-old male with past medical history of cholelithiasis came to ER with a complaint of abdominal pain which is 10/10 intensity, localized, right upper quadrant/epigastric, radiates to the back, aggravated on movement and no relieving factors. Abdomen/pelvis CT revealing cholelithiasis without sonographic evidence of acute cholecystitis; heterogeneous hepatic echotexture with 8.4 cm cystic lesion, possibly a simple cyst. MRCP suggested evidence of a 5 mm distal CBD stone. Patient's liver enzymes are trending upwards now with a bilirubin of 3.2. Currently patient denies any fever, SOB, chest pain, nausea, vomiting or any other acute distress. Past medical history: Cholelithiasis Past medical history: Nothing Contributory Family history: Nothing contributory Allergy: No known allergy PCP: Abhilash Juares David. Patient seen and evaluated in bedside today. Patient denies acute any acute distress. Status post laparoscopy cholecystectomy. Objective vital signs Vital Sign Date Time Temp Pulse Resp B/P (MAP) Pulse Ox O2 Delivery O2 Flow Rate FiO2 03/05/25 17:06 97.3 53 18 134/77 (96) 92 97.3 03/05/25 12:55 Room Air 0 03/05/25 12:55 97 Total Intake and Output 03/04/25 03/04/25 03/05/25 15:00 23:00 07:00 Intake Total 50 ml 280 ml 640 ml Output Total 800 ml Balance 50 ml 280 ml -160 ml medications Current Medications Medications Dose Ordered Sig/Abundio Route Start Time Stop Time Status Last Admin Dose Admin Ceftriaxone Sodium 50 ml @ 100 mls/hr DAILY@09 IV 03/04/25 09:00 03/05/25 12:36 100 MLS/HR Sodium Chloride 1,000 ml @ 60 mls/hr [id number] IV 03/04/25 04:45 03/05/25 12:33 60 MLS/HR Acetaminophen/ Hydrocodone Bitart 1 tab Q4HP PRN PO 03/04/25 04:45 Ondansetron HCl 4 mg Q4HP PRN IV 03/04/25 04:45 03/05/25 12:32 4 MG Nitroglycerin 0.4 mg Q5MINP PRN SL 03/04/25 06:15 Morphine Sulfate 2 mg Q30M PRN IV 03/04/25 06:15 Metronidazole 100 ml @ 100 mls/hr Q8H IV 03/04/25 15:00 03/05/25 14:17 100 MLS/HR Acetaminophen 650 mg Q6HR PO 03/05/25 14:00 03/05/25 17:26 650 MG Acetaminophen/ Hydrocodone Bitart 1 tab Q4HP PRN PO 03/05/25 14:00 03/05/25 15:19 1 TAB Examination General Appearance: Alert, Oriented X3, Cooperative, No acute distress HEENT: Atraumatic, PERRLA, EOMI, Mucous membr. moist/pink Respiratory: Clear to auscultation, Normal air movement Cardiovascular: Regular rate, Normal S1, Normal S2, No murmurs Abdominal: Normal bowel sounds, Soft, No hepatospenomegaly, epigastric and right upper quadrant tender on deep palpation Extremities: No clubbing, No cyanosis, No edema, Normal pulses, No tenderness/swelling Skin: No rashes, No significant lesion Neuro: Normal speech, Strength at 5/5 X4 ext, Normal tone, Sensation intact, Cranial nerves 3-12 NL, Reflexes 2+ Psych/Mental Status: Mental status NL, Mood NL laboratory and microbiology Laboratory Tests 03/05/25 06:00 Test 03/05/25 06:00 Range/Units Serum Glucose 85 74-106 mg/dL Problem List/Assessment/Plan Problem List/Assessment/Plan Choledocholithiasis Cholecystitis ruled out Hyperbilirubinemia Transaminitis Elevated alkaline phosphatase Hepatic cyst Ultrasound showed cholelithiasis without sonographic evidence of acute cholecystitis. Heterogeneous hepatic echotexture 8.4 cm cystic lesion. MRCP showed choledocholithiasis, cholelithiasis without evidence of cholecystitis, simple cyst 8.3 cm in liver Lipase- 50 X-ray chest shows prominent interstitial , no acute cardiopulmonary disease Status post laparoscopic cholecystectomy on 03/05/2025 Surgery consult appreciated IVF Metronidazole Pain management Antiemetic as needed Asymptomatic bradycardia Patient denies any dizziness, SOB, chest pain or any other acute distress. Thrombocytopenia CBC Diet clear liquid diet and advanced accordingly, GI prophylaxis: Not indicated DVT prophylaxis: SCD Goals of care discussion. More than 23 minute spent with patient. Case discussed with Dr. Nicholson. Plan discussed with: Patient, Other (Nurse) Visit Coding STANDARD RES Billing Provider: ARMAAN MCLEOD MD Date of Service if different f: Mar 05, 2025 Common Visit Codes: [id number] INP/OBS CARE(HIGH) AALIYAH NORMAN RESIDENT Mar 05, 2025 17:44 ARMAAN MCLEOD MD Mar 07, 2025 14:36
--- NOTE | 2025-03-05 23:38 | DVHPN2 ---
Progress Note - Dictate Date Seen: Mar 05, 2025 Medical Necessity Reason Pt with a Central, PICC or Fol: No Subjective Patient was seen and evaluated in follow up. Patient is complaining of abdominal pain. CBC is WNL. AST 241, ALT 429, Alk phos 126. Patient underwent laparoscopic cholecystectomy. Patient tolerated procedure well. vital signs Vital Sign Date Time Temp Pulse Resp B/P (MAP) Pulse Ox O2 Delivery O2 Flow Rate FiO2 03/05/25 20:00 54 19 95 Room Air* 0 21 03/05/25 17:06 97.3 134/77 (96) 97.3 Total Intake and Output 03/04/25 03/04/25 03/05/25 15:00 23:00 07:00 Intake Total 50 ml 280 ml 640 ml Output Total 800 ml Balance 50 ml 280 ml -160 ml medications Current Medications Medications Dose Ordered Sig/Abundio Route Start Time Stop Time Status Last Admin Dose Admin Ceftriaxone Sodium 50 ml @ 100 mls/hr DAILY@09 IV 03/04/25 09:00 03/05/25 12:36 100 MLS/HR Sodium Chloride 1,000 ml @ 60 mls/hr [id number] IV 03/04/25 04:45 03/05/25 12:33 60 MLS/HR Acetaminophen/ Hydrocodone Bitart 1 tab Q4HP PRN PO 03/04/25 04:45 Ondansetron HCl 4 mg Q4HP PRN IV 03/04/25 04:45 03/05/25 12:32 4 MG Nitroglycerin 0.4 mg Q5MINP PRN SL 03/04/25 06:15 Morphine Sulfate 2 mg Q30M PRN IV 03/04/25 06:15 Metronidazole 100 ml @ 100 mls/hr Q8H IV 03/04/25 15:00 03/05/25 23:08 100 MLS/HR Acetaminophen 650 mg Q6HR PO 03/05/25 14:00 03/05/25 23:07 650 MG Acetaminophen/ Hydrocodone Bitart 1 tab Q4HP PRN PO 03/05/25 14:00 03/05/25 15:19 1 TAB objective GENERAL: Alert and oriented x 3. No acute distress. EYES: PERRL, EOMI. Anicteric. HENT: Moist mucous membranes. LUNGS: Clear to auscultation bilaterally. CARDIOVASCULAR: Regular rate and rhythm. ABDOMEN: Soft, nontender and nondistended. EXTREMITIES: No edema. NEUROLOGIC: No focal neurological deficits. SKIN: Warm, dry. laboratory and microbiology Laboratory Tests 03/05/25 06:00 Test 03/05/25 06:00 Range/Units Serum Glucose 85 74-106 mg/dL Problem List Choledocholithiasis. Asymptomatic bradycardia. Thrombocytopenia. Hyperbilirubinemia. Transaminitis. ALP elevated. Assessment/Plan Continued all current supportive medical care. Morphine and [place] for pain management. IV antibiotics as ordered. Nitro SL. Additional plan as per the hospital course. Plan discussed with: Patient ALLY VENTURA MD Mar 05, 2025 23:38
[2025-03-06 01:00] VITALS: BP 128/67; PULSE 46; RESP 20; TEMP 97.9; O2SAT 95
[2025-03-06 05:00] VITALS: BP_SYST 129; BP_SYST 143; BP_DIAS 83; BP_DIAS 86; PULSE 43; PULSE 90; RESP 19; RESP 20; TEMP 97.6; TEMP 98.3; O2SAT 94; O2SAT 98
[2025-03-06 07:41] LABS: Hematocrit 40.3 % (41.0-53.0); Hemoglobin 14.0 g/dL (13.5-17.5); Mean Corpuscular Hemoglobin 31.2 pg (28.0-32.0); Mean Corpuscular Volume 89.6 fL (80.0-100.0); Nucleated Red Blood Cells % 0.0 %
[2025-03-06 07:50] VITALS: RESP 16
[2025-03-06 07:52] LABS: Alanine Aminotransferase 389 U/L (7-40); Albumin 3.8 g/dL (3.2-4.8); Alkaline Phosphatase 127 U/L (46-116); Anion Gap 9 (5-15); BUN/Creatinine Ratio 11.1 (10.0-20.0); Bilirubin, Direct 0.5 mg/dL (<0.3); Bilirubin, Total 1.0 mg/dL (0.2-1.0); Blood Urea Nitrogen 10 mg/dL (9-23); Calcium 9.2 mg/dL (8.7-10.4); Carbon Dioxide 26 mmol/L (20-31); Chloride 105 mmol/L (98-107); Glucose 104 mg/dL (74-106); Potassium 4.4 mmol/L (3.5-5.1); Sodium 140 mmol/L (136-145); Total Protein 6.4 g/dL (5.7-8.2)
[2025-03-06 09:00] VITALS: BP 148/79; PULSE 42; RESP 15; TEMP 97.2; O2SAT 96
[2025-03-06] MEDS: ERGOCALCIFEROL 50,000 UNIT(1.25MG) CAP PO SCH (11:18)
--- NOTE | 2025-03-06 11:45 | DVHPN2 ---
Progress Note - Surgical Date Seen: Mar 06, 2025 Post op day Post op day: 1 Subjective Patient reports: No new complaints, Feels better Review of Systems: Deferred Objective Vital signs Vital Sign Date Time Temp Pulse Resp B/P (MAP) Pulse Ox O2 Delivery O2 Flow Rate FiO2 03/06/25 09:00 97.2 42 15 148/79 (102) 96 97.2 03/06/25 07:50 Room Air* 0 21 Total Intake and Output 03/05/25 03/05/25 03/06/25 15:00 23:00 07:00 Intake Total 350 ml 1230 ml 1040 ml Balance 350 ml 1230 ml 1040 ml Medications Current Medications Medications Dose Ordered Sig/Abundio Route Start Time Stop Time Status Last Admin Dose Admin Ceftriaxone Sodium 50 ml @ 100 mls/hr DAILY@09 IV 03/04/25 09:00 03/05/25 12:36 100 MLS/HR Sodium Chloride 1,000 ml @ 60 mls/hr [id number] IV 03/04/25 04:45 03/06/25 06:02 60 MLS/HR Acetaminophen/ Hydrocodone Bitart 1 tab Q4HP PRN PO 03/04/25 04:45 Ondansetron HCl 4 mg Q4HP PRN IV 03/04/25 04:45 03/05/25 12:32 4 MG Nitroglycerin 0.4 mg Q5MINP PRN SL 03/04/25 06:15 Morphine Sulfate 2 mg Q30M PRN IV 03/04/25 06:15 Metronidazole 100 ml @ 100 mls/hr Q8H IV 03/04/25 15:00 03/06/25 06:02 100 MLS/HR Acetaminophen 650 mg Q6HR PO 03/05/25 14:00 03/06/25 11:19 650 MG Acetaminophen/ Hydrocodone Bitart 1 tab Q4HP PRN PO 03/05/25 14:00 03/06/25 00:08 1 TAB Ergocalciferol 50,000 unit Q7D PO 03/06/25 09:45 03/06/25 11:18 50,000 UNIT Laboratory Laboratory Tests 03/06/25 04:50 Test 03/06/25 04:50 Range/Units Serum Glucose 104 74-106 mg/dL Examination: GENERAL:Normal (AAO x3, lying comfortably in bed), HEENT:Normal (No icterus, neck supple), LUNGS:Normal (Nonlabored breathing with symmetric expansion), ABDOMEN:Normal (Nondistended, soft, depressible, incision sites with overlying skin glue and without surrounding signs of infection, appropriately tender), SKIN:Normal (No jaundice) Problem List/Assessment/Plan Assessment and Plan Mr. Arita is a 74-year-old male who presented to the hospital with choledocholithiasis, evidenced by MRCP showing a 5 mm stone in the distal common bile duct. He is currently postop day 1 from laparoscopic cholecystectomy. On the morning of the surgery his liver enzymes started to downtrend and for this reason the surgery was performed, because the stone likely had passed. This morning labs show normalization of total bilirubin and direct bilirubin level. Patient is also tolerating diet, ambulating and with pain well controlled. Patient is cleared for discharge per surgical standpoint. 1. Cleared for discharge 2. Low-fat diet 3. No lifting over 10 lb for 6 weeks 4. May shower, soap and water okay to run over incision sites. No swimming and/or bathing for 2 weeks. 5. For baseline pain control Tylenol, follow load out person's directions. 6. Recommend [place] 5 mg-325 mg 1 tab p.o. PRN breakthrough pain 7. Recommend MiraLax 1 packet daily for 7 days 8. No driving while taking narcotics 9. Follow up with Dr. Smith at surgery Clinic in 2-3 weeks, please call for appointment. My Orders My Orders Orders - ODILIA CROWLEY MD Procedure Category Date Status Time Clear Liq Diet DIET 03/05/25 Transmitted Lunch Abdominal Binder DEVIN 03/05/25 In Process 12:44 Acetaminophen Tablet PHA 03/05/25 In Process (Tylenol Tablet) 14:00 Hydrocodone-Acet PHA 03/05/25 In Process 10/325mg Tab ([place] 14:00 Plan discussed with Plan discussed with: Patient, Spouse Visit Coding Surgery Date of Service if different f: Mar 06, 2025 Billing Provider: ODILIA CROWLEY MD Surgery Visit Codes: [id number] INP/OBS CARE(HIGH) ODILIA CROWLEY MD Mar 06, 2025 11:45
[2025-03-06 13:00] VITALS: BP 139/73; PULSE 45; RESP 18; TEMP 97; O2SAT 95
--- NOTE | 2025-03-06 15:14 | DVHDSRES ---
Discharge Summary Date of Admission Resident Creating Document: AALIYAH NORMAN RESIDENT Mar 04, 2025 at 06:01 Date of Discharge: Mar 06, 2025 Labs/Diagnostic Data: Laboratory Results Test 03/06/25 04:50 03/05/25 08:41 03/04/25 14:28 03/04/25 00:30 White Blood Count 12.2 10^3/uL (4.4-10.8) Red Blood Count 4.50 10^6/uL (4.5-5.90) Hemoglobin 14.0 g/dL (13.5-17.5) Hematocrit 40.3 % (41.0-53.0) Mean Corpuscular Volume 89.6 fL (80.0-100.0) Mean Corpuscular Hemoglobin 31.2 pg (28.0-32.0) Mean Corpuscular Hemoglobin Concent 34.8 g/dL (32.0-36.0) Red Cell Distribution Width 15.4 % (11.8-14.3) Platelet Count 115 10^3/uL (140-450) Mean Platelet Volume 9.7 fL (6.9-10.8) Neutrophils (%) (Auto) 86.5 % (37.0-80.0) Lymphocytes (%) (Auto) 9.5 % (10.0-50.0) Monocytes (%) (Auto) 3.8 % (0.0-12.0) Eosinophils (%) (Auto) 0.0 % (0.0-7.0) Basophils (%) (Auto) 0.2 % (0.0-2.0) Neutrophils # (Auto) 10.6 10 ^3/uL (1.6-8.6) Lymphocytes # (Auto) 1.2 10 ^3/uL (0.4-5.4) Monocytes # (Auto) 0.5 10 ^3/uL (0-1.3) Eosinophils # (Auto) 0 10 ^3/uL (0-0.8) Basophils # (Auto) 0 10 ^3/uL (0-0.2) Nucleated Red Blood Cells 0.0 % Sodium Level 140 mmol/L (136-145) Potassium Level 4.4 mmol/L (3.5-5.1) Chloride Level 105 mmol/L (98-107) Carbon Dioxide Level 26 mmol/L (20-31) Anion Gap 9 (5-15) Blood Urea Nitrogen 10 mg/dL (9-23) Creatinine 0.90 mg/dL (0.700-1.30) Glomerular Filtration Rate Calc 89 mL/min (>90) BUN/Creatinine Ratio 11.1 (10.0-20.0) Serum Glucose 104 mg/dL (74-106) Hemoglobin A1c 5.9 % A1C (<5.7) Calcium Level 9.2 mg/dL (8.7-10.4) Total Bilirubin 1.0 mg/dL (0.2-1.0) Direct Bilirubin 0.5 mg/dL (<0.3) Aspartate Amino Transferase (AST) 185 U/L (13-40) Alanine Aminotransferase (ALT) 389 U/L (7-40) Alkaline Phosphatase 127 U/L (46-116) Total Protein 6.4 g/dL (5.7-8.2) Albumin 3.8 g/dL (3.2-4.8) Vitamin D 25-Hydroxy 30.1 ng/mL (30.0-100) Prothrombin Time 18.8 sec (9.3-11.8) Prothrombin Time INR 1.89 (0.9-1.15) Activated Partial Thromboplast Time 28.0 SEC (24.5-34.5) Urine Color Yellow (Yellow) Urine Clarity Clear (Clear) Urine pH 6.5 (5.0-9.0) Urine Specific [place] 1.011 (1.001-1.035) Urine Protein Negative (Negative) Urine Ketones Negative (Negative) Urine Blood Negative /uL (Negative) Urine Nitrite Negative (Negative) Urine Bilirubin Negative (Negative) Urine Urobilinogen Normal mg/dL (Negative) Urine Leukocyte Esterase Negative /uL (Negative) Urine RBC <1 /hpf (0 - 3) Urine Microscopic WBC < 1 /HPF (0-3) Urine Squamous Epithelial Cells None seen /hpf (<5) Urine Bacteria None seen /hpf (None Seen) Urine Glucose Normal mg/dL (Normal) Lipase 50 U/L (12-53) Other Laboratory Tests 03/06/25 04:50 Brief Hx & Hospital Course: This is a 74-year-old male with past medical history of cholelithiasis came to ER with a complaint of abdominal pain which is 10/10 intensity, localized, right upper quadrant/epigastric, radiates to the back, aggravated on movement and no relieving factors. Abdomen/pelvis CT revealing cholelithiasis without sonographic evidence of acute cholecystitis; heterogeneous hepatic echotexture with 8.4 cm cystic lesion, possibly a simple cyst. MRCP suggested evidence of a 5 mm distal CBD stone. Patient's liver enzymes are trending upwards now with a bilirubin of 3.2. Currently patient denies any fever, SOB, chest pain, nausea, vomiting or any other acute distress. Past medical history: Cholelithiasis Past medical history: Nothing Contributory Family history: Nothing contributory Allergy: No known allergy PCP: Abhilash Juares David. Hospital course; patient admitted due to intractable abdominal pain secondary to choledocholithiasis. Ultrasound showed cholelithiasis without sonographic evidence of acute cholecystitis. Heterogeneous hepatic echotexture 8.4 cm cystic lesion. MRCP showed choledocholithiasis, cholelithiasis without evidence of cholecystitis, simple cyst 8.3 cm in liver .Lipase- 50. X-ray chest shows prominent interstitial , no acute cardiopulmonary disease. Surgery consulted and laparoscopy cholecystectomy done on 03/05/2025. During examination on 03/06/2025, patient denies any fever, SOB, chest pain, or any other acute distress. Patient able to eat and tolerate well. No nausea, vomiting, diarrhea noted. Surgical site looks dry and clean no active bleeding or discharge noted. Prescribed Augmentin oral antibiotic and advised patient to continue 10 days. Medication sent to pharmacy and advised to resume home medication. Educate patient Pain management and take analgesic when there is breakthrough pain. Follow up with Dr. Smith at surgery Clinic in 2-3 weeks, please call for appointment. Patient is hemodynamically stable for discharge. Patient has received maximum benefit from inpatient treatment. Time was given to answer patient's questions and concerns in layman terms and explained by RN. Patient verbalized understanding and agreed with treatment and follow-up. Patient was recommended to return to ER if he experiences any worsening symptoms not limited to current symptoms. Follow-up with PCP and outpatient continuity clinic Juan morning within 2 weeks after discharge. Follow up with Dr. Smith at surgery Clinic in 2- 3 weeks, please call for appointment. Advice: 1. Diet as tolerated. 2. Low-fat diet 3. No lifting over 10 lb for 6 weeks 4. May shower, soap and water okay to run over incision sites. No swimming and/or bathing for 2 weeks. 5. For baseline pain control Tylenol, follow marketing services rep's directions. 6. Recommend [place] 5 mg-325 mg 1 tab p.o. PRN breakthrough pain 7. Recommend MiraLax 1 packet daily for 7 days 8. No driving while taking narcotics 9. Follow up with Dr. Smith at surgery Clinic in 2-3 weeks, please call for appointment. Physical examination Constitutional: No: Fever, Chills, Sweats, Weakness, Malaise, Other Eyes: No: Pain, Vision change, Conjunctivae inflammation, Eyelid inflammation, Other, Redness ENT: No: Ear pain, Ear discharge, Nose pain, Nose discharge, Nose congestion, Mouth pain, Mouth swelling, Throat pain, Throat swelling, Other Respiratory: Shortness of breath; No: Cough, Dry, SOB with excertion, Wheezing, Hemoptysis, Pleuritic Pain, Sputum, Wheezing, Other Cardiovascular: No: Chest Pain, Palpitations, Orthopnea, Paroxysmal Noc. Dyspnea, Edema, Lt Headedness, Other Gastrointestinal: No: Nausea, Vomiting, Abdominal Pain, Diarrhea, Constipation, Melena, Hematochezia, Other Genitourinary: No Dysuria, No Frequency, No Incontinence, No Hematuria, No Retention, No Other Musculoskeletal: No: other, neck pain, shoulder pain, arm pain, back pain, hand pain, leg pain, foot pain Skin: No: Rash, Lesions, Jaundice, Bruising, surgical site on abdomen dry and clean ,no active discharge or bleeding Neurological: No: Weakness, Numbness, Incoordination, Change in speech, Confusion, Seizures, Other >23 minute spent with patient. Case discussed with patient, nurse, , Dr. Moreira.. Operations or Procedures ORDERING PHYSICIAN: XUAN JORDAN MD PROCEDURE(s): GBUS - GALLBLADDER REASON: RUQ pain ORDER NUMBER(s): [id number], ACCESSION NUMBER(s): [id number] EXAM: US GALLBLADDER HISTORY: RUQ pain COMPARISON: US GALLBLADDER on DOS: 07/19/24 TECHNIQUE: Right upper quadrant ultrasound was performed. FINDINGS: Limited evaluation. The liver measures 17.5 cm and demonstrates heterogeneous echotexture. The pancreas hepatopetal flow. There is no intrahepatic biliary dilatation. There is an 8.4 cm cystic lesion in the right hepatic lobe. There is cholelithiasis. The gallbladder wall measures 2 mm. There is no sonographic michele's sign. The common bile duct measures 5 mm. The pancreas is not well-visualized. The right kidney measures 10.2 cm without calculus, mass, or hydronephrosis. IMPRESSION: 1. Limited evaluation. Cholelithiasis without sonographic evidence of acute cholecystitis. 2. Heterogeneous hepatic echotexture with 8.4 cm cystic lesion, possibly a simple cyst, though confirmation with a nonemergent MRI of the abdomen is suggested. ATED BY: AL ALMANZA MD DICTATED DATE/TIME: 03/04/25 0149 ORDERING PHYSICIAN: ODILIA CROWLEY MD PROCEDURE(s): MRCP - MRCP MRI REASON: Elevated bilirubin level with direct predominant ORDER NUMBER(s): [id number], ACCESSION NUMBER(s): [id number] CLINICAL HISTORY: Elevated bilirubin level with direct predominant. TECHNIQUE: MRI and MRCP of the abdomen was performed without gadolinium. 3D reconstructed images were created under concurrent radiologist supervision and archived on the PACS system. COMPARISON: None available. FINDINGS: Minimal dependent subsegmental atelectasis of the lung bases. Junction of the left and right hepatic lobe with a simple cyst measuring up to 8.3 cm. No evidence of a solid hepatic lesion. Decompressed gallbladder filled with multiple small stones measuring up to 7 mm. No abnormal gallbladder wall thickening or pericholecystic liquid to suggest acute cholecystitis. No intra- or extrahepatic biliary duct dilation. Gallstone at the distal aspect of the common bile duct (CBD) measuring approximately 5 mm (07/05, 07/16), which is consistent with choledocholithiasis. Unremarkable spleen, pancreas, and adrenal glands. Left kidney interpolar mxjgts-re-gwiod pole with a large exophytic cyst measuring 7.8 cm. No hydronephrosis. IMPRESSION: 1. Choledocholithiasis (with a distal CBD gallstone measuring up to 5 mm) as described. 2. Cholelithiasis without evidence of acute cholecystitis. 3. Liver with a simple cyst measuring up to 8.3 cm. ATED BY: DEIRDRE CHRISTINE MD DICTATED DATE/TIME: 03/04/25 1713 ORDERING PHYSICIAN: JOSEPHINE BEARDEN MD PROCEDURE(s): CXRP - CHEST PORTABLE REASON: pre-op ORDER NUMBER(s): [id number], ACCESSION NUMBER(s): [id number] INDICATION: pre-op TECHNIQUE: Frontal view of the chest. COMPARISON: XR CHEST 2 VIEW on DOS: 10/26/24, CR CHEST 2 VIEW on DOS: 08/26/23 FINDINGS/IMPRESSION: Prominence of the interstitial markings. Unremarkable cardiomediastinal silhouette. No pleural effusion or pneumothorax. No acute osseous abnormality. ATED BY: AL ALMANZA MD DICTATED DATE/TIME: 03/04/25 1804 Condition at Discharge: Stable Final Diagnosis/Problems List Choledocholithiasis status post laparoscopy cholecystectomy. Choledocholithiasis Cholecystitis ruled out Hyperbilirubinemia Thrombocytopenia Transaminitis Elevated alkaline phosphatase Hepatic cyst Asymptomatic bradycardia Discharge Disposition: Home Discharge Instruct/Medications Diet: See Comment Diet comment: low fat diet. Activity: No Restrictions, As Tolerated Follow Up/Referral: PCP Outpatient continuity clinic Wednesday morning within week after discharge Follow up with Dr. Smith at surgery Clinic in 2-3 weeks, please call for appointment. Scheduled Amoxicillin & Pot Clavulanate (Augmentin Tablet), 875 MG PO BID Cholecalciferol (Vitamin D3), 2,000 UNIT OR DAILY Omeprazole (Prilosec), 1 CAP PO DAILY, (Reported) Pantoprazole Sodium Sesquihydr (Protonix), 40 MG PO DAILY Polyethylene Glycol 3350 (Miralax Mix-in [place]), 17 GM PO DAILY Scheduled PRN Acetaminophen (Tylenol), 650 MG HI QID PRN Hydrocodone-Acetaminophen (Hydrocodone Bitartrate/AC 5-325 mg), 1 TAB PO Q8HR PRN Discontinued Medications Hydrocodone-Acetaminophen (Hydrocodone Bitartrate/AC 5-325 mg), 1 TAB PO, (Reported) Discharge Statement: "Patient was advised to return to the ER or call 911 if any headaches, dizziness, shortness of breath, chest pain, abdominal pain, bleeding, fevers, or worsening of medical condition. Patient was counseled about treatment plan, medications, possible side effects, patientverbalized understanding. All questions were answered to the best of my ability. This discharge took greater then 30 minutes in planning, reviewing documentation, counseling the patient, and discussing with other team members." ASSESSMENT ASSESSMENT Assessment Choledocholithiasis status post laparoscopy cholecystectomy. Visit Coding STANDARD RES Billing Provider: ARMAAN MOREIRA MD Date of Service if different f: Mar 06, 2025 Common Visit Codes: 59631-LID/OBS DISCH DAY >30min AALIYAH NORMAN RESIDENT Mar 06, 2025 15:14 ARMAAN MOREIRA MD Mar 07, 2025 14:47
[2025-03-06] MEDS ORDERED: HYDR-4902 PO (15:17)
[2025-03-06] MEDS ORDERED: CHOL20007 OR (15:33)
[2025-03-06] MEDS ORDERED: AUG875T PO (15:33)
[2025-03-06] MEDS ORDERED: ACE650RS PR (17:09)
[2025-03-06] MEDS ORDERED: POLY17PO5 PO (17:09)
--- NOTE | 2025-03-06 20:09 | DVHPN2 ---
Progress Note - Dictate Date Seen: Mar 06, 2025 Medical Necessity Reason Pt with a Central, PICC or Fol: No Subjective Postop day 1. S/P lap john Patient is tolerating diet Liver enzymes are trending down Mild leukocytosis vital signs Vital Sign Date Time Temp Pulse Resp B/P (MAP) Pulse Ox O2 Delivery O2 Flow Rate FiO2 03/06/25 13:00 97.0 45 18 139/73 (95) 95 97.0 03/06/25 07:50 Room Air* 0 21 Total Intake and Output 03/05/25 03/05/25 03/06/25 15:00 23:00 07:00 Intake Total 350 ml 1230 ml 1040 ml Balance 350 ml 1230 ml 1040 ml objective GENERAL:Normal (AAO x3, lying comfortably in bed), HEENT:Normal (No icterus, neck supple), LUNGS:Normal (Nonlabored breathing with symmetric expansion), ABDOMEN:Normal (Nondistended, soft, depressible, incision sites with overlying skin glue and without surrounding signs of infection, appropriately tender), SKIN:Normal (No jaundice) laboratory and microbiology Laboratory Tests 03/06/25 04:50 Test 03/06/25 04:50 Range/Units Serum Glucose 104 74-106 mg/dL Problems(with codes): (1) Elevated liver enzymes (2) Choledocholithiasis with acute cholecystitis (3) Intractable nausea and vomiting (4) Intractable abdominal pain (5) Cholelithiasis (6) Cholecystitis Prognosis Plan Advance diet as tolerated Discharge planning is in progress Outpatient follow up with PCP and GI Services to monitor liver enzymes Discuss elective ERCP if a repeat MRCP is still positive showing choledocholithiasis Plan discussed with: Patient, Other (Nena Naqvi) MENDEZ GEORGE MD Mar 06, 2025 20:09
--- NOTE | 2025-03-07 00:06 | DVHPN2 ---
Progress Note - Dictate Date Seen: Mar 06, 2025 Medical Necessity Reason Pt with a Central, PICC or Fol: No Subjective Patient was seen and evaluated in follow up. Patient is complaining of abdominal pain. Patient reports pain is well controlled with current regimen. WBC 12.2, AST 185, ALT 389. vital signs Vital Sign Date Time Temp Pulse Resp B/P (MAP) Pulse Ox O2 Delivery O2 Flow Rate FiO2 03/06/25 13:00 97.0 45 18 139/73 (95) 95 97.0 03/06/25 07:50 Room Air* 0 21 Total Intake and Output 03/05/25 03/05/25 03/06/25 14:59 22:59 06:59 Intake Total 350 ml 1230 ml 1040 ml Balance 350 ml 1230 ml 1040 ml medications Current Medications Medications Dose Ordered Sig/Abunido Route Start Time Stop Time Status Last Admin Dose Admin Ceftriaxone Sodium 50 ml @ 100 mls/hr DAILY@09 IV 03/04/25 09:00 03/05/25 12:36 100 MLS/HR Sodium Chloride 1,000 ml @ 60 mls/hr [id number] IV 03/04/25 04:45 03/06/25 06:02 60 MLS/HR Acetaminophen/ Hydrocodone Bitart 1 tab Q4HP PRN PO 03/04/25 04:45 Ondansetron HCl 4 mg Q4HP PRN IV 03/04/25 04:45 03/05/25 12:32 4 MG Nitroglycerin 0.4 mg Q5MINP PRN SL 03/04/25 06:15 Morphine Sulfate 2 mg Q30M PRN IV 03/04/25 06:15 Metronidazole 100 ml @ 100 mls/hr Q8H IV 03/04/25 15:00 03/06/25 06:02 100 MLS/HR Acetaminophen 650 mg Q6HR PO 03/05/25 14:00 03/06/25 11:19 650 MG Acetaminophen/ Hydrocodone Bitart 1 tab Q4HP PRN PO 03/05/25 14:00 03/06/25 00:08 1 TAB Ergocalciferol 50,000 unit Q7D PO 03/06/25 09:45 03/06/25 11:18 50,000 UNIT objective GENERAL: Alert and oriented x 3. No acute distress. EYES: PERRL, EOMI. Anicteric. HENT: Moist mucous membranes. LUNGS: Clear to auscultation bilaterally. CARDIOVASCULAR: Regular rate and rhythm. ABDOMEN: Soft, nontender and nondistended. EXTREMITIES: No edema. NEUROLOGIC: No focal neurological deficits. SKIN: Warm, dry. laboratory and microbiology Laboratory Tests 03/06/25 04:50 Test 03/06/25 04:50 Range/Units Serum Glucose 104 74-106 mg/dL Problem List Choledocholithiasis. Asymptomatic bradycardia. Thrombocytopenia. Hyperbilirubinemia. Transaminitis. ALP elevated. Assessment/Plan Continued all current supportive medical care. Morphine and [place] for pain management. IV antibiotics as ordered. Nitro SL. Additional plan as per the hospital course. Plan discussed with: Patient ALLY VENTURA MD Mar 06, 2025 14:30
== END 2025-03-06 16:50 | disposition home or self-care (01) | DRG 418 ==
LOC: ER 23:42 → OVERFLOW 03-04 06:01 → WEST WING 03-04 13:46
PROVIDERS: ADMIT Student in an Organized Health Care Education/Training Program; ATTEND Student in an Organized Health Care Education/Training Program
PROC: 0FT44ZZ Resection of Gallbladder, Percutaneous Endoscopic Approach (ICD-10-PCS; principal; 2025-03-05 10:08)
DX: K80.70 Calculus of gallbladder and bile duct without cholecystitis without obstruction (principal); Q44.1 Other congenital malformations of gallbladder; D69.6 Thrombocytopenia, unspecified; K76.89 Other specified diseases of liver; R74.01 Elevation of levels of liver transaminase levels; K21.9 Gastro-esophageal reflux disease without esophagitis; E80.6 Other disorders of bilirubin metabolism; Z79.899 Other long term (current) drug therapy
CPT/HCPCS: 36415; 71045; 74181; 76705; 80053; 81001; 82248; 82306; 83036; 83690; 85025; 85610; 85730; 86850; 86900; 86901; 96365; 96368; 96375; 99291; G0378; J0330; J0694; J1100; J2250; J2405; J3490